=== PATIENT | female | born 1935 | race Caucasian/White ===

== ENCOUNTER 2016-09-14 12:49 | Observation (INO) | payer MEDICARE, OTHER ==
[2016-09-14] VITALS (8 sets, daily range): BP systolic 118–243; BP diastolic 58–107; PULSE 70–90; RESP 16–20; TEMP 97.7–98.7; O2SAT 92–98
[~2016-09-14] VITALS: Ht 160 cm; Wt 69.1 kg
[~2016-09-14 12:49] MED LIST: AMLO5 PO; ASPI325T PO; ATOR80TA41 PO; CLOP75 PO; ENAL5TAB98; METO25 PO; NITR.4 SL; PERC5TAB12 PO
[2016-09-14] MEDS ORDERED: SODIUM CHLOR 0.9% 1000 ML INJ 1,000 ML IV ONE (13:06)
[2016-09-14] MEDS ORDERED: LABETALOL HCL 100 MG/20 ML VIAL IV PUSH ONE (13:15)
--- NOTE | 2016-09-14 13:15 | PD ---
HPI Chief Complaint: Stroke Alert Time Seen by Provider: 13:06 Travel History International Travel<30 days: No Contact w/Intl Traveler<30days: No Traveled to known affect area: No History of Present Illness HPI 81-year-old female with history of previous TIAs, hypertension, presents to the ER today brought in by her daughter because she started having a headache of an 8 out of 10 this morning and started having slurred speech which patient states started around 10:30 to 11 AM. She states that the speech has been improving over the course of the morning. She denies any difficulty walking, numbness or weakness, or any other symptoms. They are concerned because of her previous TIAs. Patient's daughter states that she has had elevated blood pressures recently and has been monitored by her primary care physician regarding that issue. She had taken all for her blood pressure medications this morning and a baby aspirin. 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) Endocrine: No Genitourinary: No Headaches: Yes Hypertension: Yes Musculoskeletal: No Psychiatric: No Respiratory: No Myocardial Infarction: No Radiation Therapy: No Seizures: No Tubal Ligation: Yes Past Surgical History Abdominal Surgery: No AICD: No Body Medical Devices: VERTIGO Cardiac Surgery: No Coronary Artery Bypass Graft: No Ear Surgery: No Endocrine Surgery: No Eye Surgery: Yes (CATERACT REMOVAL 2003) Genitourinary Surgery: No Gynecologic Surgery: Yes (D AND C X 3 TUBAL LIGATION) Oral Surgery: No Pacemaker: No Thoracic Surgery: No Other Surgery: Yes (RIGHT BREAST BENIGN MASS) Social History Alcohol Use: No Tobacco Use: No Substance Use: No Allergies-Medications (Allergen,Severity, Reaction): Coded Allergies: Codeine (Verified Allergy, Severe, 05/10/14) NO REACTION GIVEN Sulfa (Verified Allergy, Unknown, 05/10/14) Lisinopril (Unverified Adverse Reaction, Intermediate, Edema, 05/10/14) Reported Meds & Prescriptions Reported Meds & Active Scripts Active Nitroglycerin Tab 0.4 Mg Sl (Nitroglycerin) 0.4 Mg Subl 0.4 Mg SL DIRECTED PRN 30 Days Aspirin 325 Mg Tab (Aspirin) 325 Mg Tab 325 Mg PO DAILY 30 Days Percocet 5-325 mg (Oxycodone/Acetaminophen) 1 Tab Tab 1 Tab PO Q4H PRN Metoprolol Tartrate 25 mg (Metoprolol Tartrate) 25 Mg Tab 25 Mg PO Q12 30 Days Lipitor 80 Mg Tab (Atorvastatin) 80 Mg Tab 80 Mg PO HS 30 Days Norvasc (Amlodipine Besylate) 5 Mg Tab 5 Mg PO DAILY 30 Days Reported Plavix (Clopidogrel Bisulfate) 75 Mg Tab 75 Mg PO DAILY Vasotec (Enalapril Maleate) 5 Mg Tab 20 DAILY Review of Systems Except as stated in HPI: all other systems reviewed are Neg Physical Exam Narrative GENERAL: Pleasant elderly white female patient currently in no acute distress. She is well-developed, awake, alert, oriented 3. Normal speech. SKIN: Focused skin assessment warm/dry. HEAD: Atraumatic. Normocephalic. EYES: Pupils equal and round. No scleral icterus. No injection or drainage. ENT: No nasal bleeding or discharge. Mucous membranes pink and moist. NECK: Trachea midline. No JVD. CARDIOVASCULAR: Regular rate and rhythm. No murmur appreciated. RESPIRATORY: No accessory muscle use. Clear to auscultation. Breath sounds equal bilaterally. GASTROINTESTINAL: Abdomen soft, non-tender, nondistended. Hepatic and splenic margins not palpable. MUSCULOSKELETAL: No obvious deformities. No clubbing. No cyanosis. No edema. NEUROLOGICAL: Awake and alert. No obvious cranial nerve deficits. Motor grossly within normal limits. Normal speech. No pronator drift. PSYCHIATRIC: Appropriate mood and affect; insight and judgment normal. Data Data Last Documented VS Vital Signs Date Time Temp Pulse Resp B/P Pulse Ox O2 Delivery O2 Flow Rate FiO2 09/14/16 13:47 80 18 187/90 92 Room Air 09/14/16 13:05 Orders Diet Npo (09/14/16 Lunch) Activity Bed Rest (09/14/16 ) Electrocardiogram (09/14/16 ) I-Stat Creatinine (09/14/16 13:06) I-Stat Profile (09/14/16 13:06) Prothrombin Time / Inr (Pt) (09/14/16 13:06) Act Partial Throm Time (Ptt) (09/14/16 13:06) Complete Blood Count With Diff (09/14/16 13:06) Fibrinogen (09/14/16 13:06) Creatine Kinase (Cpk) (09/14/16 13:06) Troponin I (09/14/16 13:06) Ua Includes Microscopic (09/14/16 13:06) Drug Screen, Random Urine (09/14/16 13:06) Type And Screen (09/14/16 13:06) Ct Brain W/O Iv Contrast(Rout) (09/14/16 ) Consult Neurology (09/14/16 ) Blood Glucose (09/14/16 13:06) Ecg Monitoring (09/14/16 13:06) Neuro Checks Q2HX12,Q4H (09/14/16 13:06) Nursing Bedside Swallow Assess .ONCE (09/14/16 13:06) Iv Access Insert/Monitor (09/14/16 13:06) NPO (09/14/16 13:06) Oximetry (09/14/16 13:06) Oxygen Administration (09/14/16 13:06) Sodium Chlor 0.9% 1000 Ml Inj (Ns 1000 M (09/14/16 13:06) Resp Oxygen Juanito C Titrat 1-4 L (09/14/16 13:06) Cath For Specimen (09/14/16 13:06) Labetalol Inj (Trandate Inj) (09/14/16 13:15) Aspirin (Aspirin) (09/14/16 13:45) Mri Brain W/O Contrast (09/14/16 13:43) (Hub Use Only)Inp Phy Cons/Ref (09/14/16 ) Clonidine (Catapres) (09/14/16 14:15) Amlodipine (Norvasc) (09/15/16 09:00) Aspirin (Aspirin) (09/15/16 09:00) Atorvastatin (Lipitor) (09/14/16 21:00) Clopidogrel (Plavix) (09/15/16 09:00) Metoprolol Tartrate (Lopressor) (09/14/16 21:00) Admit Order (Ed Use Only) (09/14/16 15:31) Lorazepam Inj (Ativan Inj) (09/14/16 15:45) Labs Laboratory Tests Test 09/14/16 13:07 White Blood Count 7.6 TH/MM3 Red Blood Count 4.48 MIL/MM3 Hemoglobin 13.4 GM/DL Bedside Hemoglobin 14.3 G/DL Hematocrit 40.6 % Bedside Hematocrit 42.0 % Mean Corpuscular Volume 90.8 FL Mean Corpuscular Hemoglobin 30.0 PG Mean Corpuscular Hemoglobin 33.1 % Concent Red Cell Distribution Width 13.8 % Platelet Count 261 TH/MM3 Mean Platelet Volume 8.4 FL Neutrophils (%) (Auto) 73.6 % Lymphocytes (%) (Auto) 16.1 % Monocytes (%) (Auto) 7.7 % Eosinophils (%) (Auto) 1.9 % Basophils (%) (Auto) 0.7 % Neutrophils # (Auto) 5.6 TH/MM3 Lymphocytes # (Auto) 1.2 TH/MM3 Monocytes # (Auto) 0.6 TH/MM3 Eosinophils # (Auto) 0.1 TH/MM3 Basophils # (Auto) 0.1 TH/MM3 CBC Comment DIFF FINAL Differential Comment Prothrombin Time 10.4 SEC Prothromb Time International 0.9 RATIO Ratio Activated Partial 26.8 SEC Thromboplast Time Fibrinogen 366 mg/dL Bedside Sodium 143 MMOL/L Bedside Potassium 3.9 MMOL/L Bedside Chloride 106 MMOL/L Bedside Blood Urea Nitrogen 18 MG/DL Bedside Creatinine 1.0 MG/DL Bedside Glucose 107 MG/DL Total Creatine Kinase 61 U/L Troponin I LESS THAN 0.02 NG/ML Blood Type A NEGATIVE Antibody Screen NEGATIVE Blood Bank Comment [facility] Medical Decision Making Medical Screen Exam Complete: Yes Emergency Medical Condition: Yes Medical Record Reviewed: Yes Interpretation(s) EKG shows normal sinus rhythm at a rate of 76 bpm with a left bundle branch block pattern. Differential Diagnosis Slurred speech is/headachestroke versus acute intracranial bleed versus hypertensive urgency Narrative Course Patient's blood pressure is fairly elevated in the ER. Stroke alert was called for further evaluation of possible stroke. Her symptoms have rapidly improved in the ER however, and she has barely a word finding difficulty currently. Case was discussed with Dr. Gonzalez of neurology who states that he does not think the patient would be a TPA candidate due to rapidly improving symptoms and very low stroke score. NIH score of less than 1. Case is discussed with Dr. Ingram for admission. Aspirin was given in the ER. She was also given labetalol and clonidine and for fairly elevated blood pressures. Dr. Gonzalez has also requested I do an MRI for further evaluation. Diagnosis Primary Impression: Stroke Admitting Information Admitting Physician Requests: it Gabriela Dimas MD Sep 14, 2016 13:15
--- NOTE | 2016-09-14 13:21 | RADRPT ---
EXAM DATE/TIME: 09/14/2016 13:01 [facility] COMPARISON: CT BRAIN W/O CONTRAST, September 20, 2013, 0:34. INDICATIONS : Stroke alert; slurred speech, headache. RADIATION DOSE: 56.35 CTDIvol (mGy) This report was called by Dr. Sebastian to Dr. Dimas at 1: 18 PM. MEDICAL HISTORY : Stroke. Hypertension. SURGICAL HISTORY : None. ENCOUNTER: Initial ACUITY: 1 day PAIN SCALE: 3/10 LOCATION: Bilateral cranial TECHNIQUE: Multiple contiguous axial images were obtained of the head. Using automated exposure control and adj ustment of the mA and/or kV according to patient size, radiation dose was kept as low as reasonably a chievable to obtain optimal diagnostic quality images. FINDINGS: CEREBRUM: There is mild cerebral atrophy. Ventricles are mildly prominent but stable. There is mild periventric ular white matter low-attenuation. No evidence of midline shift, mass lesion, hemorrhage or acute in farction. No extra-axial fluid collections are seen. POSTERIOR FOSSA: The cerebellum and brainstem demonstrate no acute finding. The 4th ventricle is midline. The cerebe llopontine angle is unremarkable. EXTRACRANIAL: The visualized portion of the orbits is intact. SKULL: The calvaria is intact. No evidence of skull fracture. CONCLUSION: 1. No acute intracranial abnormality is identified. 2. Chronic changes include generalized atrophy and periventricular white matter low attenuation primo cteristic of chronic microvascular ischemia. Giovanni Sebastian MD on September 14, 2016 at 13:16 Board Certified Radiologist. This report was verified electronically.
[2016-09-14 13:24] LABS: I-STAT POTASSIUM 3.9 MMOL/L (3.5-4.9); I-STAT SODIUM 143 MMOL/L (138-146)
[2016-09-14 13:25] LABS: AUTOMATED NEUTROPHIL # 5.6 TH/MM3 (1.8-7.7); BASOPHIL # 0.1 TH/MM3 (0-0.2); BASOPHIL % 0.7 % (0.0-2.0); EOSINOPHIL # 0.1 TH/MM3 (0-0.4); EOSINOPHIL % 1.9 % (0.0-4.0); HEMATOCRIT 40.6 % (35.0-46.0); HEMO FLAGS DIFF FINAL; LYMPH % 16.1 % (9.0-44.0); LYMPHOCYTE # 1.2 TH/MM3 (1.0-4.8); MEAN CELL VOLUME 90.8 FL (80.0-100.0); MEAN CORPUSCULAR HGB CONC 33.1 % (32.0-36.0); MONO % 7.7 % (0.0-8.0); NEUT % 73.6 % (16.0-70.0); PLATELET COUNT 261 TH/MM3 (150-450); RED BLOOD COUNT 4.48 MIL/MM3 (4.00-5.30); RED CELL DISTRIBUTION WIDTH 13.8 % (11.6-17.2); WHITE BLOOD COUNT 7.6 TH/MM3 (4.0-11.0)
[2016-09-14 13:34] LABS: APTT (PATIENT) 26.8 SEC (24.3-30.1); INTERNATIONAL NORMALIZED RATIO 0.9 RATIO; PROTHROMBIN TIME - PATIENT 10.4 SEC (9.8-11.6)
[2016-09-14] MEDS ORDERED: ASPIRIN 325 MG TAB PO ONE (13:45)
[2016-09-14 13:49] LABS: CREATINE KINASE 61 U/L (26-192)
[2016-09-14] MEDS ORDERED: cloNIDine HCL 0.2 MG TAB PO ONE (14:15)
[2016-09-14] MEDS: SODIUM CHLOR 0.9% 1000 ML INJ 1,000 ML IV SCH (15:37)
[2016-09-14] MEDS ORDERED: ACETAMINOPHEN 325 MG TAB PO PRN (15:45)
[2016-09-14] MEDS ORDERED: NALOXONE HCL 0.4 MG/ML AMP IV PRN (15:45)
[2016-09-14] MEDS ORDERED: ONDANSETRON HCL 4 MG/2 ML VIAL IVP PRN (15:45)
[2016-09-14] MEDS ORDERED: SODIUM CHLORIDE 0.9% FLUSH 10 ML FLUSH IV FLUSH PRN (15:45)
[2016-09-14] MEDS ORDERED: LORazepam 2 MG/ML VIAL IV PUSH ONE (15:45)
[2016-09-14] MEDS ORDERED: BISACODYL 10 MG SUPP RECTAL PRN (15:45)
--- NOTE | 2016-09-14 16:34 | RADRPT ---
EXAM DATE/TIME: 09/14/2016 15:57 [facility] COMPARISON: CT BRAIN W/O CONTRAST, September 14, 2016, 13:01. INDICATIONS : Aphasia. CVA. MEDICAL HISTORY : Hypertension. Cerebrovascular disease. SURGICAL HISTORY : Breast biopsy. Cataracts. ENCOUNTER: Subsequent ACUITY: 1 day PAIN SCORE: 3/10 LOCATION: head. TECHNIQUE: Multiplanar, multisequence MRI of the brain was performed without contrast. FINDINGS: CEREBRUM: There is generalized atrophy. Ventricles are normal in size given the degree of atrophy present. Ther e are normal flow-voids within the major intracranial vessels on the T2 sequence. No evidence of mid line shift, mass lesion, hemorrhage or acute infarction. No extraaxial fluid collections are seen. The pituitary gland and suprasellar cistern are normal in configuration. WHITE MATTER: There is mild to moderate periventricular white matter signal change. POSTERIOR FOSSA: The cerebellum and brainstem demonstrate no acute finding. The 4th ventricle is midline. The cerebel lopontine angle is unremarkable. The cerebellar tonsils are normal in position. DIFFUSION IMAGING: No focal areas of restricted diffusion are seen. No evidence of acute infarction. EXTRACRANIAL: The visualized portions of the orbits and paranasal sinuses are unremarkable. CONCLUSION: 1. No acute intracranial abnormality is identified. There are no findings to indicate recent ischemia . 2. Chronic changes include generalized atrophy and moderate severity periventricular white matter sig nal change characteristic of chronic microvascular ischemia. Giovanni Sebastian MD on September 14, 2016 at 16:30 Board Certified Radiologist. This report was verified electronically.
--- NOTE | 2016-09-14 16:53 | OTSOAPIP ---
ATTEMPTED AT 1630 PM. PATIENT'S DAUGHTER IN ROOM REPORTS BASELINE LIVES ALONE, ADL AND FUNCTIONAL MOBILITY INDEPENDENT. PATIENT RECEIVED ATIVAN DUE TO ELEVATED BLOOD PRESSURE AND IS SLEEPING SOUNDLY. DAUGHTER REPORTS NO PHYSICAL DEFICITS. WILL RECHECK IN AM. Therapist: Jossy Wray OTR/L Signature on file
[2016-09-14] MEDS ORDERED: ENOXAPARIN SODIUM 40 MG/0.4 ML SYRINGE SQ SCH (17:00)
--- NOTE | 2016-09-14 17:02 | HHI.HP ---
[facility] Service [facility] Primary Care Physician Apple Thomas MD Admission Diagnosis stroke alert/CVA Diagnoses: Chief Complaint: Slurred speech Travel History International Travel<30 Days: No Contact w/Intl Traveler <30 Da: No Traveled to Known Affected Are: No History of Present Illness This is a pleasant 81 y/o female with previous TIAs as per her Daughter Multiple TIAs in the past one week ago had the last one, has Hypertension, she came to ER today brought in by her Daughter because of headache, 8/10 in intensity on both eyes, she is been diagnosed recently with Ocular Migraine, this started this morning around 10:30 AM she called her Daughter with slurred speech, denied any difficulty walking, numbness or weakness, or any other symptoms. her Daughter concerned about TIA, versus CVA brought her also her blood pressure uncontrolled, she had Stroke alert but not considered for tPA by Neurology specialist. Past Family Social History Past Medical History CAD status post Heart Catheterization, Hyperlipidemia Hypertension TIA 2002, 2004 and last week Bilateral Hearing aids Migraine headaches. Past Surgical History Tubal Ligation Cataract Surgery 2003 D and C x 3 Right Breast benign Mass Reported Medications Reported Meds & Active Scripts Active Nitroglycerin Tab 0.4 Mg Sl (Nitroglycerin) 0.4 Mg Subl 0.4 Mg SL DIRECTED PRN 30 Days Aspirin 325 Mg Tab (Aspirin) 325 Mg Tab 325 Mg PO DAILY 30 Days Percocet 5-325 mg (Oxycodone/Acetaminophen) 1 Tab Tab 1 Tab PO Q4H PRN Metoprolol Tartrate 25 mg (Metoprolol Tartrate) 25 Mg Tab 25 Mg PO Q12 30 Days Lipitor 80 Mg Tab (Atorvastatin) 80 Mg Tab 80 Mg PO HS 30 Days Norvasc (Amlodipine Besylate) 5 Mg Tab 5 Mg PO DAILY 30 Days Reported Plavix (Clopidogrel Bisulfate) 75 Mg Tab 75 Mg PO DAILY Vasotec (Enalapril Maleate) 5 Mg Tab 20 DAILY Allergies: Coded Allergies: Codeine (Verified Allergy, Severe, 05/10/14) NO REACTION GIVEN Sulfa (Verified Allergy, Unknown, 05/10/14) Lisinopril (Unverified Adverse Reaction, Intermediate, Edema, 05/10/14) Active Ordered Medications Current Medications Medications (Trade) Dose Ordered Sig/Thomas Route Start Time Stop Time Status Last Admin (NS 1000 ml Inj) 1,000 ml @ 70 mls/hr [id number] ONCE IV 09/14/16 13:06 09/15/16 03:23 09/14/16 13:54 (Norvasc) 5 mg DAILY PO 09/15/16 09:00 (Aspirin) 325 mg DAILY PO 09/15/16 09:00 (Lipitor) 80 mg HS PO 09/14/16 21:00 (Plavix) 75 mg DAILY PO 09/15/16 09:00 Metoprolol Tartrate 25 mg 25 mg BID PO 09/14/16 21:00 (NS 1000 ml Inj) 1,000 ml @ 100 mls/hr Q10H IV 09/14/16 15:37 (NS Flush) 2 ml UNSCH PRN IV FLUSH 09/14/16 15:45 (NS Flush) 2 ml BID IV FLUSH 09/14/16 21:00 (Tylenol) 650 mg Q4H PRN PO 09/14/16 15:45 (Zofran Inj) 4 mg Q6H PRN IVP 09/14/16 15:45 (Dulcolax Supp) 10 mg DAILY PRN RECTAL 09/14/16 15:45 (Colace) 100 mg Q12H PO 09/14/16 16:00 (Lovenox Inj) 40 mg Q24H SQ 09/14/16 17:00 (Narcan Inj) 0.4 mg UNSCH PRN IV 09/14/16 15:45 Family History Father with Stroke and Sister with status post Stroke, Social History Lives by her self and drinks alcohol occasional. Physical Exam Vital Signs Vital Signs Date Time Temp Pulse Resp B/P Pulse Ox O2 Delivery O2 Flow Rate FiO2 09/14/16 13:47 80 18 187/90 92 Room Air 09/14/16 13:30 83 93 Room Air 09/14/16 13:05 20 94 Room Air 09/14/16 13:05 94 Room Air 09/14/16 12:55 98.3 76 20 243/107 94 09/14/16 12:51 72 18 220/100 96 Room Air Physical Exam GENERAL: Pleasant elderly white female patient currently in no acute distress. She is well-developed, awake, alert, oriented 3. Normal speech. SKIN: Focused skin assessment warm/dry. HEAD: Atraumatic. Normocephalic. EYES: Pupils equal and round. No scleral icterus. No injection or drainage. ENT: No nasal bleeding or discharge. Mucous membranes pink and moist. NECK: Trachea midline. No JVD. CARDIOVASCULAR: Regular rate and rhythm. No murmur appreciated. RESPIRATORY: No accessory muscle use. Clear to auscultation. Breath sounds equal bilaterally. GASTROINTESTINAL: Abdomen soft, non-tender, nondistended. Hepatic and splenic margins not palpable. MUSCULOSKELETAL: No obvious deformities. No clubbing. No cyanosis. No edema. NEUROLOGICAL: Awake and alert. No obvious cranial nerve deficits. Motor grossly within normal limits. Normal speech. No pronator drift. PSYCHIATRIC: Appropriate mood and affect; insight and judgment normal. Laboratory Laboratory Tests Test 09/14/16 13:07 White Blood Count 7.6 Red Blood Count 4.48 Hemoglobin 13.4 Bedside Hemoglobin 14.3 Hematocrit 40.6 Bedside Hematocrit 42.0 Mean Corpuscular Volume 90.8 Mean Corpuscular Hemoglobin 30.0 Mean Corpuscular Hemoglobin 33.1 Concent Red Cell Distribution Width 13.8 Platelet Count 261 Mean Platelet Volume 8.4 Neutrophils (%) (Auto) 73.6 Lymphocytes (%) (Auto) 16.1 Monocytes (%) (Auto) 7.7 Eosinophils (%) (Auto) 1.9 Basophils (%) (Auto) 0.7 Neutrophils # (Auto) 5.6 Lymphocytes # (Auto) 1.2 Monocytes # (Auto) 0.6 Eosinophils # (Auto) 0.1 Basophils # (Auto) 0.1 CBC Comment DIFF FINAL Differential Comment Prothrombin Time 10.4 Prothromb Time International 0.9 Ratio Activated Partial 26.8 Thromboplast Time Fibrinogen 366 Bedside Sodium 143 Bedside Potassium 3.9 Bedside Chloride 106 Bedside Blood Urea Nitrogen 18 Bedside Creatinine 1.0 Bedside Glucose 107 Total Creatine Kinase 61 Troponin I LESS THAN 0.02 Blood Type A NEGATIVE Antibody Screen NEGATIVE Blood Bank Comment Result Diagram: 09/14/16 1307 Imaging Last Impressions Brain MRI 09/14/16 1343 Signed Impressions: Service Date/Time: Wednesday, September 14, 2016 15:57 - CONCLUSION: 1. No acute intracranial abnormality is identified. There are no findings to indicate recent ischemia. 2. Chronic changes include generalized atrophy and moderate severity periventricular white matter signal change characteristic of chronic microvascular ischemia. Giovanni Sebastian MD Head CT 09/14/16 0000 Signed Impressions: Service Date/Time: Wednesday, September 14, 2016 13:01 - CONCLUSION: 1. No acute intracranial abnormality is identified. 2. Chronic changes include generalized atrophy and periventricular white matter low attenuation characteristic of chronic microvascular ischemia. Giovanni Sebastian MD Assessment and Plan Assessment and Plan 1. TIA versus CVA not found any pathology on CT Brain or Brain MRI no contrast , her EKG showed sinus rhythm with Left bundle branch block Stroke alert and seen by Neurology specialist no need for tPA, recommended for admission continued Home medicines, Plavix, Beta luis fernando Statin, PT, OT and Speech therapy consult, Event Security Officer, NPO by now and follow recommendations, Neurology specialist following 2. Hypertension Permissive Hypertension recommended at this time, but improving 3. Hyperlipidemia continue Statins. 4. Migraine headache continue Pain medicines and Beta blockers 5. CAD status post Cardiac Cath, history of VT 6. Anxiety disorder as per her Daughter the patient has been under stressful condition in life, will add some Ativan as needed. DVT prophylaxis with Lovenox. Discussed with Patient in the room her Daughter Mrs. Beatriz Jackson and with ER specialist Doctor Gabriela perez. Code Status Full Code Discussed Condition With Patient, Daughter and ER specialist. Physician Certification 2 Midnight Certification Type: Admission for Inpatient Services Order for Inpatient Services The services are ordered in accordance with Medicare regulations or non- Medicare payer requirements, as applicable. In the case of services not specified as inpatient-only, they are appropriately provided as inpatient services in accordance with the 2-midnight benchmark. Estimated LOS (days): 1 days is the estimated time the patient will need to remain in the hospital, assuming treatment plan goals are met and no additional complications. Post-Hospital Plan: Home Don Rick MD Sep 14, 2016 17:02
--- NOTE | 2016-09-14 17:05 | RADRPT ---
EXAM DATE/TIME: 09/14/2016 15:57 [facility] COMPARISON: MRI BRAIN W/O CONTRAST, September 14, 2016, 15:57. US CAROTID ARTERIES, April 04, 2013, 9:40. INDICATIONS : Stroke. CONTRAST: 20 cc Omniscan (gadodiamide) IV MEDICAL HISTORY : Hypertension. Cerebrovascular disease. SURGICAL HISTORY : Breast biopsy. ENCOUNTER: Subsequent ACUITY: 1 day PAIN SCORE: 0/10 LOCATION: neck Percent stenosis is calculated using the diameter of the stenotic region over the diameter of the nor mal distal internal carotid artery. TECHNIQUE: Bolus infused MRA of the extracranial circulation was performed using a neurovascular coil. Post pro cessing was performed including rotating subvolume maximum intensity projections of each carotid yordy ry, rotating full volume maximum intensity projections of both carotid arteries, sagittal and coronal sliding thin slab reformations of each carotid artery, and left oblique sliding thin slab reformatio n through the aortic arch to include the origin of the arch branch vessels. FINDINGS: AORTIC ARCH: There is a three vessel origin of the great vessels from the aorta. No evidence of ostial narrowing. RIGHT CAROTID: The common carotid artery is intact. The carotid bulb has a normal configuration without ulceration or narrowing. The internal carotid artery lumen is smooth without stenosis. The external carotid th ere is a focal severe stenosis at the origin of the right external carotid artery.. LEFT CAROTID: The common carotid artery is intact. There is mild atherosclerosis suspected at the carotid bifurcati on without evidence of hemodynamically significant stenosis. The internal carotid artery lumen is smo oth without stenosis. The external carotid artery is intact. VERTEBRALS: The vertebral arteries have a symmetric diameter. No stenotic lesions are seen. CONCLUSION: 1. Focal severe stenosis of the right proximal external carotid artery suspected at the bifurcation. 2. No evidence for hemodynamically significant stenosis of either internal carotid artery. 3. Vertebral arteries are widely patent. Eliecer Obregon MD on September 14, 2016 at 17:01 Board Certified Radiologist. This report was verified electronically.
[2016-09-14 17:37] LABS: CREATINE KINASE 51 U/L (26-192)
[2016-09-14] MEDS: DOCUSATE SODIUM 100 MG CAP PO SCH ×2 (18:18→21:41)
[2016-09-14] MEDS ORDERED: GADODIAMIDE PF 287 MG/ML 20 ML VIAL (for RAD MRI) IV ONE (18:29)
[2016-09-14] MEDS ORDERED: ATORVASTATIN 80 MG TAB PO SCH (21:00)
[2016-09-14] MEDS ORDERED: SODIUM CHLORIDE 0.9% FLUSH 10 ML FLUSH IV FLUSH SCH (21:00)
[2016-09-14] MEDS: METOPROLOL TARTRATE 25 MG TAB PO SCH (21:00)
--- NOTE | 2016-09-14 21:02 | EC ---
Study Study Date:09/14/2016 STUDY CONCLUSIONS SUMMARY LEFT VENTRICLE: The cavity size was normal. Wall thickness was increased in a pattern of moderate LVH. There was concentric hypertrophy. Systolic function was normal. The estimated ejection fraction was in the range of 60% to 65%. Wall motion was normal; there were no regional wall motion abnormalities. Doppler parameters are consistent with abnormal left ventricular relaxation (grade 1 diastolic dysfunction). If LV function is below 40, please consider prescribing an ACEI or ARB or document rationale for non-use. PROCEDURE DATA STUDY STATUS: Elective. Procedure: Transthoracic echocardiography. Image quality was good. Scanning was performed from the parasternal, apical, and subcostal acoustic windows. Study completion: The patient tolerated the procedure well. Transthoracic echocardiography. M-mode, complete 2D, complete spectral Doppler, and color Doppler. Height: Height: 63in. Weight: Weight: 150.7lb. Body mass index: BMI: 26.7kg/m^2. Body surface area: BSA: 1.72m^2. Patient status: Inpatient. CARDIAC ANATOMY LEFT VENTRICLE: The cavity size was normal. Wall thickness was increased in a pattern of moderate LVH. There was concentric hypertrophy. Systolic function was normal. The estimated ejection fraction was in the range of 60% to 65%. Wall motion was normal; there were no regional wall motion abnormalities. Doppler parameters are consistent with abnormal left ventricular relaxation (grade 1 diastolic dysfunction). AORTIC VALVE: Trileaflet; mildly thickened leaflets. Doppler: There was no stenosis. No significant regurgitation. Valve area: 1.73cm^2 (Vmax). Indexed valve area: 1.01cm^2/m^2 (Vmax). MITRAL VALVE: The valve appears to be grossly normal. Doppler: There was no evidence for stenosis. No significant regurgitation. Valve area by pressure half-time: 4.07cm^2. Indexed valve area by pressure half-time: 2.37cm^2/m^2. RIGHT VENTRICLE: The cavity size was normal. PULMONIC VALVE: Not well visualized. Doppler: There was no evidence for stenosis. No significant regurgitation. TRICUSPID VALVE: The valve appears to be grossly normal. Doppler: There was no evidence for stenosis. No significant regurgitation. PERICARDIUM: There was no pericardial effusion. Patient weight: 150.7lb _Ejection fraction:_ 65-75% _Fractional shortening:_ 32% up to 5Kg 5-11.5Kg 11.6-22.9Kg 23-45Kg 45-57Kg Aortic Root 7-13 <17 13-22 17-27 17-27 LA diam 6-13 <23 24-38 33-47 37-40 RVID 10-17 7-15 7-15 7-18 8-17 LVIDd 12-22 <32 24-38 33-47 37-40 LVPW 2-4 3-6 5-7 6-8 7-8 IVS 2-4 3-6 5-7 6-8 7-8 BASIC MEASUREMENTS ADULT NORMAL Left ventricle LV internal dimension, ED, chordal *35.2 mm 43-52 level, PLAX LV internal dimension, ES, chordal 23.6 mm 23-38 level, PLAX Fractional shortening, chordal level, 33 % >29 PLAX LV posterior wall thickness, ED 16.7 mm IVS/LVPW ratio, ED 1 <1.3 Volume, ED, MOD, 1-plane 60 ml Volume, ES, MOD, 1-plane 19 ml Ejection fraction, MOD, 1-plane 68 % Stroke volume, MOD, 1-plane 41 ml Volume index, ED, MOD, 1-plane 35 ml/m^2 Volume index, ES, MOD, 1-plane 11 ml/m^2 Stroke index, MOD, 1-plane 23.8 ml/m^2 Ventricular septum Septal thickness, ED 16.7 mm Aortic valve Leaflet separation 18 mm 15-26 Left atrium Anterior-posterior dimension 36 mm Anterior-posterior dimension index 2.09 cm/m^2 <2.2 Right ventricle RV internal dimension, ED, PLAX 19.2 mm 19-38 BASIC MEASUREMENTS ADULT NORMAL Aortic valve Leaflet separation 18 mm 15-26 Aorta Root diameter, ED 27 mm 20-37 DOPPLER MEASUREMENTS ADULT NORMAL Aortic valve Peak velocity, S 148 cm/s Valve area, Vmax 1.73 cm^2 Valve area index, Vmax 1.01 cm^2/m^2 Mitral valve Peak E-wave velocity 52.8 cm/s Peak A-wave velocity 83.9 cm/s Pressure half-time 54 ms Peak E/A ratio 0.6 Valve area, pressure half-time 4.07 cm^2 Valve area index, pressure half-time 2.37 cm^2/m^2 Pulmonic valve Peak velocity, S 117 cm/s LEGEND: Mean values are shown as u=mean value. Asterisk (*) rey values outside specified normal range. Prepared and signed by Isauro Brown [id number]
[2016-09-15 00:32] VITALS: BP 141/60; PULSE 64; RESP 20; TEMP 96.1; O2SAT 64
[2016-09-15] MEDS: SODIUM CHLOR 0.9% 1000 ML INJ 1,000 ML IV SCH (01:37)
[2016-09-15 02:00] VITALS: BP 156/70; PULSE 70; RESP 2; TEMP 96.6; O2SAT 95
[2016-09-15 04:15] VITALS: BP 156/70; PULSE 67; RESP 20; TEMP 96.6; O2SAT 95
--- NOTE | 2016-09-15 06:50 | MB ---
cc: CARLOS MANUEL DELGADO MD DATE OF CONSULTATION 09/14/2016 REASON FOR CONSULTATION Stroke alert HISTORY OF PRESENT ILLNESS This is an 81-year-old female with past medical history of several TIAs. Describes these episodes as slurred speech without any weakness or numbness or facial droop, history of hypertension who presented to the [facility] emergency room today by her daughter because of severe headache and blurry vision, painful eyes diagnosed recently with ocular migraines. She called her daughter who noted that she had slurred speech. Denied any facial droop, difficulty walking weakness or numbness or her extremities, loss of sphincter control, convulsions or disorientation. Daughter brought her mother because of concern of possible stroke. A stroke alert was called. The head CT scan did not reveal any intracranial abnormality. EKG with normal sinus rhythm. Blood pressure initial reading was elevated greater than 180 systolic. The patient symptoms rapidly improved. The patient was deemed not to be a t-PA candidate due to the rapidly improving symptoms and NIH stroke scale of 0. REVIEW OF SYSTEMS A 12-point review of systems negative except for what is stated in the HPI. PAST MEDICAL HISTORY 1. Coronary artery disease status post cardiac catheterization. 2. Hypertension 3. Hyperlipidemia 4. TIA in 2007, 2009 and last week 5. Bilateral hearing aids 6. Ocular migraines PAST SURGICAL HISTORY 1. Tubal ligation 2. Cataract surgery 2003 3. D&C three times 4. Right breast mass removal. MEDICATIONS 1. Nitroglycerin 2. Aspirin 3. Percocet 4. Metoprolol 5. Lipitor 6. Norvasc 7. Plavix 8. Vasotec - The patient is not aware why she is on both Plavix and Aspirin ALLERGIES CODEINE, SULFA AND LISINOPRIL FAMILY HISTORY Father and sister with history of stroke. SOCIAL HISTORY Lives by herself. Drinks alcohol occasionally. Denies tobacco or illicit drug abuse. PHYSICAL EXAMINATION GENERAL: Awake, alert, pleasant, good historian not in apparent distress HEENT: Atraumatic, normocephalic. Intact hearing and intact vision. NECK: Trachea in the midline. No carotid bruit. No signs of meningeal irritation. CARDIOVASCULAR: Regular rate and rhythm. No murmurs appreciated. RESPIRATORY: Clear to auscultation. No wheezes. GASTROINTESTINAL: Soft, nontender. MUSCULOSKELETAL: No obvious deformity, clubbing or cyanosis. Moves all extremities equally. NEUROLOGIC: Awake, alert and oriented to time, person and place. No speech difficulty. No dysarthria. No dysphasia. Intact speech content. Cranial nerves II-XII are grossly intact. Motor and sensory examination 5/5 bilateral symmetrical upper and lower extremities normal tone. No abnormal movement. Sensation intact bilateral and symmetrical. Reflexes 2+ bilateral and symmetrical upper and lower extremities with planters bilaterally downgoing. [id number], [id number] is intact bilateral and symmetrical. PSYCHOLOGICAL: Good mood and behavior. No hallucinations. Insight and judgment are normal. LABORATORY DATA White blood cell count 7.6, hemoglobin 13.4, MCV 90.8 platelets. 261. Sodium 143, potassium 3.9, BUN 50, creatinine 1.01. DIAGNOSTIC IMAGING - Head CT scan with no reported acute intracranial abnormality. Chronic changes include generalized atrophy in periventricular white matter. Low attenuation characteristic of chronic microvascular ischemia. - Brain MRI: No acute intracranial abnormality identified. No findings to indicate a recent ischemia. Chronic changes include generalized atrophy and multiple periventricular white matter signal change characteristic of chronic microvascular ischemia. - Neck MRA focal severe stenosis of the right proximal external carotid artery suspected at the bifurcation. No evidence of hemodynamically significant stenosis of either internal carotid artery. Vertebral arteries are widely patent. DIAGNOSTIC IMPRESSION 1. TIA 2. Hypertensive urgency 3. Hyperlipidemia 4. History of diagnosis for ocular migraine. 5. Coronary artery disease 6. Anxiety PLAN 1. Neuro checks q. four hourly. 2. Continue aspirin 325 and Plavix 75 at this time. 3. The patient is stable from a neurology standpoint, neurologic examination is nonfocal. 4. Neuro imaging diagnostics tests are unremarkable. 5. May consider Holter monitoring for possible paroxysmal atrial fibrillation given the multiple TIAs. 6. Follow up with outpatient neurology in four weeks. Thank you for the opportunity to participate in the care of your patient. MD KARIN Price/ABIOLA /11:51 PM /6:31 AM JANINA
[2016-09-15 07:20] VITALS: BP 173/70; PULSE 71; RESP 18; TEMP 97.2; O2SAT 94
[2016-09-15 07:33] LABS: AUTOMATED NEUTROPHIL # 4.2 TH/MM3 (1.8-7.7); BASOPHIL % 0.8 % (0.0-2.0); EOSINOPHIL # 0.1 TH/MM3 (0-0.4); EOSINOPHIL % 1.9 % (0.0-4.0); HEMATOCRIT 37.6 % (35.0-46.0); HEMO FLAGS DIFF FINAL; LYMPH % 22.1 % (9.0-44.0); LYMPHOCYTE # 1.4 TH/MM3 (1.0-4.8); MEAN CORPUSCULAR HEMOGLOBIN 29.7 PG (27.0-34.0); MONO % 6.2 % (0.0-8.0); PLATELET COUNT 202 TH/MM3 (150-450); RED BLOOD COUNT 4.18 MIL/MM3 (4.00-5.30); RED CELL DISTRIBUTION WIDTH 13.9 % (11.6-17.2); WHITE BLOOD COUNT 6.1 TH/MM3 (4.0-11.0)
[2016-09-15 07:38] LABS: PROTHROMBIN TIME - PATIENT 10.7 SEC (9.8-11.6)
[2016-09-15 07:54] LABS: BICARBONATE 24.8 MEQ/L (21.0-32.0); INDIRECT BILIRUBIN 0.4 MG/DL (0.0-0.8); POTASSIUM 3.8 MEQ/L (3.5-5.1); TOTAL BILIRUBIN ADULT 0.5 MG/DL (0.2-1.0)
--- NOTE | 2016-09-15 08:50 | HHI.PR ---
Subjective Remarks This is a pleasant 81 y/o female with previous TIAs as per her Daughter Multiple TIAs in the past one week ago had the last one, has Hypertension, she came to ER today brought in by her Daughter because of headache, 8/10 in intensity on both eyes, she is been diagnosed recently with Ocular Migraine, this started this morning around 10:30 AM she called her Daughter with slurred speech, denied any difficulty walking, numbness or weakness, or any other symptoms. her Daughter concerned about TIA, versus CVA brought her also her blood pressure uncontrolled, she had Stroke alert but not considered for tPA by Neurology specialist. 09/15: Status post Neurology specialist consult with Diagnosis of TIA, Accelerated Hypertension, Ocular Migraine, recommended to continue Aspirin 325 mg and Plavix 75 mg, stable from Neurology for discharge. Holter monitoring for possible PAF given multiple TIA follow by Neurology in four weeks. appreciated assistance by Neurology specialist Doctor Mary Rutherford Objective Vital Signs Date Time Temp Pulse Resp B/P Pulse Ox O2 Delivery O2 Flow Rate FiO2 09/15/16 04:15 96.6 67 20 156/70 95 09/15/16 00:32 96.1 64 20 141/60 64 09/14/16 20:00 97.7 72 20 136/59 98 09/14/16 20:00 70 09/14/16 18:30 74 18 141/63 97 Nasal Cannula 2 09/14/16 18:03 98.7 78 16 118/58 92 Nasal Cannula 2 09/14/16 16:44 79 16 147/65 95 Nasal Cannula 2 09/14/16 13:47 80 18 187/90 92 Room Air 09/14/16 13:30 83 93 Room Air 09/14/16 13:05 20 94 Room Air 09/14/16 13:05 94 Room Air 09/14/16 12:55 98.3 76 20 243/107 94 09/14/16 12:51 72 18 220/100 96 Room Air I/O 09/14/16 09/14/16 09/14/16 09/15/16 09/15/16 09/15/16 07:00 15:00 23:00 07:00 15:00 23:00 Intake Total 270 ml Balance 270 ml Intake IV Total 270 ml # Voids 1 1 # Bowel Movements 0 0 Result Diagram: [id number]/[id number] Imaging Last Impressions Brain MRI 09/14/16 1343 Signed Impressions: Service Date/Time: Wednesday, September 14, 2016 15:57 - CONCLUSION: 1. No acute intracranial abnormality is identified. There are no findings to indicate recent ischemia. 2. Chronic changes include generalized atrophy and moderate severity periventricular white matter signal change characteristic of chronic microvascular ischemia. Giovanni Sebastian MD Neck Magnetic Resonance Angiography 09/14/16 0000 Signed Impressions: Service Date/Time: Wednesday, September 14, 2016 15:57 - CONCLUSION: 1. Focal severe stenosis of the right proximal external carotid artery suspected at the bifurcation. 2. No evidence for hemodynamically significant stenosis of either internal carotid artery. 3. Vertebral arteries are widely patent. Eliecer Obregon MD Head CT 09/14/16 0000 Signed Impressions: Service Date/Time: Wednesday, September 14, 2016 13:01 - CONCLUSION: 1. No acute intracranial abnormality is identified. 2. Chronic changes include generalized atrophy and periventricular white matter low attenuation characteristic of chronic microvascular ischemia. Giovanni Sebastian MD Procedures No Procedures performed. Other Results Laboratory Tests Test 09/14/16 09/14/16 09/15/16 13:07 23:07 07:19 Bedside Hemoglobin 14.3 G/DL Bedside Hematocrit 42.0 % Activated Partial 26.8 SEC Thromboplast Time Fibrinogen 366 mg/dL Bedside Sodium 143 MMOL/L Bedside Potassium 3.9 MMOL/L Bedside Chloride 106 MMOL/L Bedside Blood Urea Nitrogen 18 MG/DL Bedside Creatinine 1.0 MG/DL Bedside Glucose 107 MG/DL Blood Type A NEGATIVE Antibody Screen NEGATIVE Blood Bank Comment Total Creatine Kinase 48 U/L Troponin I 0.02 NG/ML White Blood Count 6.1 TH/MM3 Red Blood Count 4.18 MIL/MM3 Hemoglobin 12.4 GM/DL Hematocrit 37.6 % Mean Corpuscular Volume 90.0 FL Mean Corpuscular Hemoglobin 29.7 PG Mean Corpuscular Hemoglobin 33.0 % Concent Red Cell Distribution Width 13.9 % Platelet Count 202 TH/MM3 Mean Platelet Volume 8.2 FL Neutrophils (%) (Auto) 69.0 % Lymphocytes (%) (Auto) 22.1 % Monocytes (%) (Auto) 6.2 % Eosinophils (%) (Auto) 1.9 % Basophils (%) (Auto) 0.8 % Neutrophils # (Auto) 4.2 TH/MM3 Lymphocytes # (Auto) 1.4 TH/MM3 Monocytes # (Auto) 0.4 TH/MM3 Eosinophils # (Auto) 0.1 TH/MM3 Basophils # (Auto) 0.0 TH/MM3 CBC Comment DIFF FINAL Differential Comment Prothrombin Time 10.7 SEC Prothromb Time International 1.0 RATIO Ratio Sodium Level 145 MEQ/L Potassium Level 3.8 MEQ/L Chloride Level 112 MEQ/L Carbon Dioxide Level 24.8 MEQ/L Anion Gap 8 MEQ/L Blood Urea Nitrogen 11 MG/DL Creatinine 0.78 MG/DL Estimat Glomerular Filtration 71 ML/MIN Rate Random Glucose 99 MG/DL Calcium Level 8.2 MG/DL Total Bilirubin 0.5 MG/DL Direct Bilirubin 0.1 MG/DL Indirect Bilirubin 0.4 MG/DL Aspartate Amino Transf 21 U/L (AST/SGOT) Alanine Aminotransferase 23 U/L (ALT/SGPT) Alkaline Phosphatase 109 U/L Total Protein 6.1 GM/DL Albumin 2.9 GM/DL Objective Remarks GENERAL: Pleasant elderly white female patient currently in no acute distress. She is well-developed, awake, alert, oriented 3. Normal speech. SKIN: Focused skin assessment warm/dry. HEAD: Atraumatic. Normocephalic. EYES: Pupils equal and round. No scleral icterus. No injection or drainage. ENT: No nasal bleeding or discharge. Mucous membranes pink and moist. NECK: Trachea midline. No JVD. CARDIOVASCULAR: Regular rate and rhythm. No murmur appreciated. RESPIRATORY: No accessory muscle use. Clear to auscultation. Breath sounds equal bilaterally. GASTROINTESTINAL: Abdomen soft, non-tender, nondistended. Hepatic and splenic margins not palpable. MUSCULOSKELETAL: No obvious deformities. No clubbing. No cyanosis. No edema. NEUROLOGICAL: Awake and alert. No obvious cranial nerve deficits. Motor grossly within normal limits. Normal speech. No pronator drift. PSYCHIATRIC: Appropriate mood and affect; insight and judgment normal. Medications and IVs Current Medications Medications (Trade) Dose Ordered Sig/Thomas Route Start Time Stop Time Status Last Admin (Norvasc) 5 mg DAILY PO 09/15/16 09:00 (Aspirin) 325 mg DAILY PO 09/15/16 09:00 (Lipitor) 80 mg HS PO 09/14/16 21:00 (Plavix) 75 mg DAILY PO 09/15/16 09:00 Metoprolol Tartrate 25 mg 25 mg BID PO 09/14/16 21:00 (NS 1000 ml Inj) 1,000 ml @ 100 mls/hr Q10H IV 09/14/16 15:37 09/15/16 01:37 (NS Flush) 2 ml UNSCH PRN IV FLUSH 09/14/16 15:45 (NS Flush) 2 ml BID IV FLUSH 09/14/16 21:00 09/14/16 21:00 (Tylenol) 650 mg Q4H PRN PO 09/14/16 15:45 (Zofran Inj) 4 mg Q6H PRN IVP 09/14/16 15:45 (Dulcolax Supp) 10 mg DAILY PRN RECTAL 09/14/16 15:45 (Colace) 100 mg Q12H PO 09/14/16 16:00 09/14/16 18:18 (Lovenox Inj) 40 mg Q24H SQ 09/14/16 17:00 09/14/16 18:00 (Narcan Inj) 0.4 mg UNSCH PRN IV 09/14/16 15:45 A/P Assessment and Plan 1. 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 Follow in four weeks with Neurology and will give PCP and Cardiology follow up in two days. 2. Hypertension Permissive Hypertension recommended at this time, but improving , taken at this time systolic blood pressure 155 mm Hg. 3. Hyperlipidemia continue Statins. 4. Migraine headache continue Pain medicines and Beta blockers 5. CAD status post Cardiac Cath, history of HI 6. Anxiety disorder as per her Daughter the patient has been under stressful condition in life, will add some Ativan as needed. DVT prophylaxis with Lovenox. Discussed with Patient in the room, nurse Mr. Helm and called her Daughter Mrs. Beatriz Jackson left message to her Code Status Full Code Discharge Planning Discharge Home and No needs as per Physical Therapy. Don Rick MD Sep 15, 2016 08:49
[2016-09-15] MEDS ORDERED: amLODIPine BESYLATE 5 MG TAB PO SCH (09:00)
[2016-09-15] MEDS ORDERED: ASPIRIN 325 MG TAB PO SCH (09:00)
[2016-09-15] MEDS ORDERED: CLOPIDOGREL 75 MG TAB PO SCH (09:00)
[2016-09-15] MEDS: METOPROLOL TARTRATE 25 MG TAB PO SCH (09:35)
--- NOTE | 2016-09-15 11:13 | HHI.DS ---
Discharge Summary Admission Date Sep 14, 2016 at 15:32 Discharge Date: Sep 15, 2016 Admitting Diagnosis stroke alert/CVA (1) LBBB (left bundle branch block) ICD Code: I44.7 Diagnosis: Secondary (2) History of recurrent TIAs ICD Code: Z86.73 Diagnosis: Principal (3) Accelerated hypertension ICD Code: I10 Diagnosis: Principal (4) Transient ischemic attack (TIA) ICD Code: G45.9 Diagnosis: Principal Procedures No procedures performed. Brief History - From Admission This is a pleasant 81 y/o female with previous TIAs as per her Daughter Multiple TIAs in the past one week ago had the last one, has Hypertension, she came to ER today brought in by her Daughter because of headache, 8/10 in intensity on both eyes, she is been diagnosed recently with Ocular Migraine, this started this morning around 10:30 AM she called her Daughter with slurred speech, denied any difficulty walking, numbness or weakness, or any other symptoms. her Daughter concerned about TIA, versus CVA brought her also her blood pressure uncontrolled, she had Stroke alert but not considered for tPA by Neurology specialist. CBC/BMP: 09/15/16 0719 09/15/16 0719 Significant Findings Laboratory Tests Test 09/14/16 09/14/16 09/15/16 13:07 16:50 07:19 Neutrophils (%) (Auto) 73.6 % (16.0-70.0) Bedside Glucose 107 MG/DL (60-95) Troponin I LESS THAN 0.02 LESS THAN 0.02 NG/ML NG/ML (0.02-0.05) (0.02-0.05) Chloride Level 112 MEQ/L (98-107) Estimat Glomerular Filtration 71 ML/MIN (>89) Rate Calcium Level 8.2 MG/DL (8.5-10.1) Total Protein 6.1 GM/DL (6.4-8.2) Albumin 2.9 GM/DL (3.4-5.0) Imaging Last Impressions Brain MRI 09/14/16 1973 Signed Impressions: Service Date/Time: Wednesday, September 14, 2016 15:57 - CONCLUSION: 1. No acute intracranial abnormality is identified. There are no findings to indicate recent ischemia. 2. Chronic changes include generalized atrophy and moderate severity periventricular white matter signal change characteristic of chronic microvascular ischemia. Giovanni Sebastian MD Neck Magnetic Resonance Angiography 09/14/16 0000 Signed Impressions: Service Date/Time: Wednesday, September 14, 2016 15:57 - CONCLUSION: 1. Focal severe stenosis of the right proximal external carotid artery suspected at the bifurcation. 2. No evidence for hemodynamically significant stenosis of either internal carotid artery. 3. Vertebral arteries are widely patent. Eliecer Obregon MD Head CT 09/14/16 0000 Signed Impressions: Service Date/Time: Wednesday, September 14, 2016 13:01 - CONCLUSION: 1. No acute intracranial abnormality is identified. 2. Chronic changes include generalized atrophy and periventricular white matter low attenuation characteristic of chronic microvascular ischemia. Giovanni Sebastian MD PE at Discharge GENERAL: Pleasant elderly white female patient currently in no acute distress. She is well-developed, awake, alert, oriented 3. Normal speech. SKIN: Focused skin assessment warm/dry. HEAD: Atraumatic. Normocephalic. EYES: Pupils equal and round. No scleral icterus. No injection or drainage. ENT: No nasal bleeding or discharge. Mucous membranes pink and moist. NECK: Trachea midline. No JVD. CARDIOVASCULAR: Regular rate and rhythm. No murmur appreciated. RESPIRATORY: No accessory muscle use. Clear to auscultation. Breath sounds equal bilaterally. GASTROINTESTINAL: Abdomen soft, non-tender, nondistended. Hepatic and splenic margins not palpable. MUSCULOSKELETAL: No obvious deformities. No clubbing. No cyanosis. No edema. NEUROLOGICAL: Awake and alert. No obvious cranial nerve deficits. Motor grossly within normal limits. Normal speech. No pronator drift. PSYCHIATRIC: Appropriate mood and affect; insight and judgment normal. Hospital Course This is a pleasant 81 y/o female with previous TIAs as per her Daughter Multiple TIAs in the past one week ago had the last one, has Hypertension, she came to ER today brought in by her Daughter because of headache, 8/10 in intensity on both eyes, she is been diagnosed recently with Ocular Migraine, this started this morning around 10:30 AM she called her Daughter with slurred speech, denied any difficulty walking, numbness or weakness, or any other symptoms. her Daughter concerned about TIA, versus CVA brought her also her blood pressure uncontrolled, she had Stroke alert but not considered for tPA by Neurology specialist. 09/15: Status post Neurology specialist consult with Diagnosis of TIA, Accelerated Hypertension, Ocular Migraine, recommended to continue Aspirin 325 mg and Plavix 75 mg, stable from Neurology for discharge. Holter monitoring for possible PAF given multiple TIA follow by Neurology in four weeks. appreciated assistance by Neurology specialist Doctor Mary Rutherford Assessment and Plan 1. 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 Follow in four weeks with Neurology and will give PCP and Cardiology follow up in two days. 2. Hypertension Permissive Hypertension recommended at this time, but improving , taken at this time systolic blood pressure 155 mm Hg. 3. Hyperlipidemia continue Statins. 4. Migraine headache continue Pain medicines and Beta blockers 5. CAD status post Cardiac Cath, history of ID 6. Anxiety disorder as per her Daughter the patient has been under stressful condition in life, will add some Ativan as needed. DVT prophylaxis with Lovenox. Discussed with Patient in the room, nurse Volodymyr and called her Daughter Mrs. Beatriz Jackson left message to her Code Status Full Code Discharge Planning Discharge Home and No needs as per Physical Therapy. Pt Condition on Discharge: Good Discharge Disposition: Discharge Home Discharge Time: <= 30 minutes Discharge Instructions DIET: Follow Instructions for: Heart Healthy Diet, Diabetic Diet Activities you can perform: Regular-No Restrictions Don Rick MD Sep 15, 2016 11:13
[2016-09-15 11:14] VITALS: O2SAT 94
[2016-09-15 11:41] VITALS: BP 155/60; PULSE 60; RESP 18; TEMP 98; O2SAT 95
--- NOTE | 2016-09-15 20:18 | OTSOAPIP ---
TIME SESSION COMPLETED: 1000 TREATMENT TIME: SCREEN CHART REVIEWED. S: PATIENT DAUGHTER REPORTS PATIENT INDPEENDENT PLOF DOES NOT FEEL SHE NEEDS THERAPY O: DAUGHTER DOES NOT FEEL SHE NEEDS REHAB INTERVENTION A: PATIENT RESPONSE TO TREATMENT:EVAL NOT COMPLETED P: RN NOTIFIED _X_ PT WAS INSTRUCTED TO NOT GET OUT OF BED OR CHAIR WITHOUT ASSISTANCE. CALL WING WAS LEFT WITHIN REACH. DISABILITIES ELEMENTS SCORE - SELF-FEEDING ___X_ 4 = INDEPENDENT: EATS FROM A DISH AND DRINKS FROM A CUP OR GLASS PRESENTED IN THE CUSTOMARY MANNER ON TABLE OR TRAY. USES ORDINARY KNIFE, FORK, AND SPOON. ____ 3 = INDEPENDENT WITH DEVICE: USES AN ADAPTIVE OR ASSISTING DEVICE SUCH A STRAW, SPORK, OR ROCKING KNIFE OR REQUIRES MORE THAN A REASONABLE TIME TO EAT. ____ 2 = DEPENDENT - PARTIAL HELP REQUIRED: PERFORMS HALF OR MORE OF FEEDING TASKS BUT REQUIRES SUPERVISION (E.G., STANDBY, CUEING, OR COAXING), SETUP (APPLICATION OF ORTHOTICS), OR OTHER HELP. ____ 1 = DEPENDENT - TOTAL HELP REQUIRED: EITHER PERFORMS LESS THAN HALF OF FEEDING TASKS, OR DOES NOT EAT OR DRINK FULL MEALS BY MOUTH AND RELIES AT LEAST IN PART ON OTHER MEANS OF ALIMENTATION, SUCH PARENTERAL OR GASTROSTOMY FEEDINGS. INTERDISCIPLINARY COMMUNICATION:EMR DISCHARGE RECOMMENDATION/ATTENTION CASE MANAGEMENT: EQUIPMENT: ___ 3-1 BEDSIDE COMMODE ___ DROP ARM COMMODE ___ SLIDING BOARD ___ SHOWER BENCH ___ NONE ___ OTHER: CONTINUED THERAPY: ___ OT AT REHAB _X__ HOME WITH NO OT RECOMMENDED ___ HOME WITH HOME HEALTH OT ___ HOME WITH OUT PATIENT OT ___ REQUIRES SUPERVISION AT HOME FOR SAFETY ___ OTHER: Therapist: Jossy Wray OTR/L Signature on file
--- NOTE | 2016-09-16 07:12 | EKG ---
Date Performed: 09/14/2016 Time Performed: 13:14:38 PTAGE: 81 years EKG: Sinus rhythm WITH SINUS ARRHYTHMIA LEFT BUNDLE BRANCH BLOCK ABNORMAL ECG Compared to prior tracing no significant change PREVIOUS TRACING : 05/11/2014 13.36 DOCTOR: Chauncey Mancia Interpretating Date/Time 09/16/2016 07:09:54
== END 2016-09-15 12:28 | disposition home or self-care (01) ==
LOC: NEPE 12:49 → UNDOADMIN 15:32 → NEDA 15:32 → INTOOBSV 15:39 → NEDA 15:39 → N05B 18:44 → UNDODISIN 09-15 12:28
PROVIDERS: ADMIT Internal Medicine; ATTEND Internal Medicine
DX: G43.109 Migraine with aura, not intractable, without status migrainosus (principal); R47.81 Slurred speech; I44.7 Left bundle-branch block, unspecified; I10 Essential (primary) hypertension; E78.00 Pure hypercholesterolemia, unspecified; H53.8 Other visual disturbances; I25.10 Atherosclerotic heart disease of native coronary artery without angina pectoris; E78.5 Hyperlipidemia, unspecified; R94.31 Abnormal electrocardiogram [ECG] [EKG]; F41.9 Anxiety disorder, unspecified; Z79.01 Long term (current) use of anticoagulants; Z79.82 Long term (current) use of aspirin; Z86.73 Personal history of transient ischemic attack (TIA), and cerebral infarction without residual deficits; Z82.3 Family history of stroke
CPT/HCPCS: 70450; 70548; 70551; 80048; 80076; 82435; 82550; 82565; 82947; 82948; 84132; 84295; 84484; 84520; 85025; 85384; 85610; 85730; 86850; 86900; 86901; 92610; 93005; 93306; 96125; 96361; 96374; 97162; 99285; A9579; G0378; G8987; G8988; J1650; J2060; J7030

== ENCOUNTER 2017-01-20 17:27 | Emergency (ER) | payer MEDICARE, OTHER ==
[~2017-01-20] VITALS: Ht 157.5 cm; Wt 61.0 kg
[2017-01-20 17:29] VITALS: BP 151/70; PULSE 86; RESP 15; TEMP 98.4; O2SAT 99
--- NOTE | 2017-01-20 19:27 | PD ---
HPI Chief Complaint: GI Complaint Time Seen by Provider: 19:27 Travel History International Travel<30 days: No Contact w/Intl Traveler<30days: No Traveled to known affect area: No History of Present Illness HPI 81-year-old female came to the emergency room brought by her daughter with history of vomiting or discomfort, poor appetite and nausea for past 5 days. Patient says all this started when she started drinking the bowel prep solution prior to colonoscopy. Patient says that every time she drank she vomited but somehow finish the whole agent and got a colonoscopy done by Dr. Ireland on Monday. She was told that she had some small polyps and diverticulosis but nothing major. However the abdominal pain continued and her appetite continued to be poor. She has not had much to eat or drink because of this in past 3 days. No history of vomiting. She has not had a bowel movement in past 4 days. Vital signs are stable. No history of fever or chills. No aggravating or relieving factors for the pain. She shows the pain in the epigastric as well as the lower abdomen. [facility] Past Medical History Narrative Medical List of her past medical, surgical, social and family history was reviewed from the nursing note. 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) Endocrine: No Genitourinary: No Headaches: Yes Hypertension: Yes Musculoskeletal: No Psychiatric: No Respiratory: No Myocardial Infarction: No Radiation Therapy: No Seizures: No : 3 Para: 3 Tubal Ligation: Yes Past Surgical History Abdominal Surgery: No AICD: No Body Medical Devices: VERTIGO Cardiac Surgery: No Coronary Artery Bypass Graft: No Ear Surgery: No Endocrine Surgery: No Eye Surgery: Yes (CATERACT REMOVAL 2003) Genitourinary Surgery: No Gynecologic Surgery: Yes (D AND C X 3 TUBAL LIGATION) Oral Surgery: No Pacemaker: No Thoracic Surgery: No Other Surgery: Yes (RIGHT BREAST BENIGN MASS) Social History Alcohol Use: Yes (OCCASIONALLY) Tobacco Use: No Substance Use: No Allergies-Medications (Allergen,Severity, Reaction): Coded Allergies: codeine (Unverified Allergy, Severe, 01/20/17) NO REACTION GIVEN Sulfa (Sulfonamide Antibiotics) (Unverified Allergy, Unknown, 01/20/17) lisinopril (Unverified Adverse Reaction, Intermediate, Edema, 01/20/17) Comments List of her allergies reviewed from the nursing note. Reported Meds & Prescriptions Reported Meds & Active Scripts Active Zofran Odt (Ondansetron Odt) 4 Mg Tab 4 Mg SL Q6HR PRN Protonix (Pantoprazole Sodium) 40 Mg Tab 40 Mg PO DAILY Reported Hydrochlorothiazide 25 Mg Tab 25 Mg PO DAILY Atorvastatin (Atorvastatin Calcium) 40 Mg Tab 40 Mg PO HS Isosorbide Mononitrate ER (Isosorbide Mononitrate) 30 Mg Erick 30 Mg PO DAILY Percocet (Oxycodone-Acetaminophen) 5-325 mg Tab 1 Tab PO Q4H PRN Aspirin 81 (Aspirin) 81 Mg Tabdr 81 Mg PO DAILY Metoprolol Tartrate 25 Mg Tab 25 Mg PO BID Nitrostat SL (Nitroglycerin) 0.4 Mg Subl 0.4 Mg SL DIRECTED PRN 1 tablet under the tongue as needed for chest pain. Repeat every 5 minutes for a total of 3 DOSES or call 911 if NO relief. Losartan (Losartan Potassium) 100 Mg Tab 100 Mg PO DAILY Amlodipine (Amlodipine Besylate) 5 Mg Tab 5 Mg PO DAILY Plavix (Clopidogrel Bisulfate) 75 Mg Tab 75 Mg PO DAILY Narrative Medication List of her home medications reviewed from the nursing note. Review of Systems Except as stated in HPI: all other systems reviewed are Neg Physical Exam Narrative GENERAL: Awake, alert, mild distress, anxious SKIN: Focused skin assessment warm/dry. HEAD: Atraumatic. Normocephalic. EYES: Pupils equal and round. No scleral icterus. No injection or drainage. ENT: No nasal bleeding or discharge. Dry mucous membrane NECK: Trachea midline. No JVD. CARDIOVASCULAR: Regular rate and rhythm. No murmur appreciated. RESPIRATORY: No accessory muscle use. Clear to auscultation. Breath sounds equal bilaterally. GASTROINTESTINAL: Abdomen soft, non-tender, nondistended. Hepatic and splenic margins not palpable. MUSCULOSKELETAL: No obvious deformities. No clubbing. No cyanosis. No edema. NEUROLOGICAL: Awake and alert. No obvious cranial nerve deficits. Motor grossly within normal limits. Normal speech. PSYCHIATRIC: Appropriate mood and affect; insight and judgment normal. Data Data Last Documented VS Vital Signs Date Time Temp Pulse Resp B/P (MAP) Pulse Ox O2 Delivery O2 Flow Rate FiO2 01/21/17 00:59 80 16 135/77 (96) 100 01/20/17 22:19 Room Air 01/20/17 17:29 98.4 Orders Orders Complete Blood Count With Diff (01/20/17 19:39) Comprehensive Metabolic Panel (01/20/17 19:39) Lipase (01/20/17 19:39) Prothrombin Time / Inr (Pt) (01/20/17 19:39) Urinalysis - C+S If Indicated (01/20/17 19:39) Ct Abd/Pel W/O Iv Contrast (01/20/17 19:39) Iv Access Insert/Monitor (01/20/17 19:39) Ecg Monitoring (01/20/17 19:39) Oximetry (01/20/17 19:39) Sodium Chlor 0.9% 1000 Ml Inj (Ns 1000 M (01/20/17 19:39) Sodium Chloride 0.9% Flush (Ns Flush) (01/20/17 19:45) Electrocardiogram (01/20/17 19:39) Iohexol 350 Inj (Omnipaque 350 Inj) (01/20/17 20:00) Sodium Chlorid 0.9% 500 Ml Inj (Ns 500 M (01/20/17 22:45) Pantoprazole Inj (Protonix Inj) (01/20/17 23:15) Labs Laboratory Tests Test 01/20/17 20:33 01/20/17 22:18 White Blood Count 11.8 TH/MM3 Red Blood Count 5.21 MIL/MM3 Hemoglobin 15.7 GM/DL Hematocrit 47.9 % Mean Corpuscular Volume 91.9 FL Mean Corpuscular Hemoglobin 30.1 PG Mean Corpuscular Hemoglobin Concent 32.8 % Red Cell Distribution Width 14.5 % Platelet Count 314 TH/MM3 Mean Platelet Volume 8.6 FL Neutrophils (%) (Auto) 81.2 % Lymphocytes (%) (Auto) 10.8 % Monocytes (%) (Auto) 6.8 % Eosinophils (%) (Auto) 0.6 % Basophils (%) (Auto) 0.6 % Neutrophils # (Auto) 9.6 TH/MM3 Lymphocytes # (Auto) 1.3 TH/MM3 Monocytes # (Auto) 0.8 TH/MM3 Eosinophils # (Auto) 0.1 TH/MM3 Basophils # (Auto) 0.1 TH/MM3 CBC Comment DIFF FINAL Differential Comment Prothrombin Time 10.6 SEC Prothromb Time International Ratio 1.0 RATIO Blood Urea Nitrogen 35 MG/DL Creatinine 1.27 MG/DL Random Glucose 97 MG/DL Total Protein 7.2 GM/DL Albumin 3.4 GM/DL Calcium Level 8.5 MG/DL Alkaline Phosphatase 124 U/L Aspartate Amino Transf (AST/SGOT) 30 U/L Alanine Aminotransferase (ALT/SGPT) 22 U/L Total Bilirubin 0.6 MG/DL Sodium Level 139 MEQ/L Potassium Level 3.9 MEQ/L Chloride Level 108 MEQ/L Carbon Dioxide Level 24.7 MEQ/L Anion Gap 6 MEQ/L Estimat Glomerular Filtration Rate 40 ML/MIN Lipase 279 U/L Urine Color YELLOW Urine Turbidity HAZY Urine pH 5.0 Urine Specific [place] 1.024 Urine Protein TRACE mg/dL Urine Glucose (UA) NEG mg/dL Urine Ketones 10 mg/dL Urine Occult Blood NEG Urine Nitrite NEG Urine Bilirubin NEG Urine Urobilinogen LESS THAN 2.0 MG/DL Urine Leukocyte Esterase LARGE Urine RBC 5 /hpf Urine WBC 7 /hpf Urine Squamous Epithelial Cells 4 /hpf Urine Transitional Epithelial Cells 1 /hpf Urine Amorphous Sediment RARE Urine Bacteria FEW /hpf Urine Hyaline Casts 2 /lpf Urine Mucus FEW /lpf Microscopic Urinalysis Comment CULT NOT INDICATED MDM Medical Decision Making Medical Screen Exam Complete: Yes Emergency Medical Condition: Yes Medical Record Reviewed: Yes Interpretation(s) Twelve-lead EKG was reviewed by me. Normal sinus rhythm, left axis deviation, left bundle branch block which is old. Heart rate of 67 bpm. Differential Diagnosis Acute diverticulitis, UTI, acute pyelonephritis, Benoit night abnormality, dehydration, colitis Narrative Course 10:25 PM blood test results of back and within normal limits. CT scan shows possible duodenitis but otherwise negative. Awaiting for the UA. Patient was given a liter of IV fluid bolus. 11:16 PM urine is back and no signs of UTI. Patient will be discharged home on Protonix prescription and Zofran. After given her dose of Protonix as well. Procedures EKG Prior to Arrival: No Diagnosis Primary Impression: Dehydration Additional Impression: Duodenitis Referrals: John Ireland MD 3 days Additional Instructions: Take clear liquid diet for the next 2-3 days. Call your GI specialist office on Monday. He would require an upper endoscopy. Take the medications as per the prescription direction. Return to the ER if the condition worsens or any other new concerns. Med/Other Pt SpecificInfo: Prescription(s) given Scripts Ondansetron Odt (Zofran Odt) 4 Mg Tab 4 MG SL Q6HR Y for Nausea/Vomiting, #15 TAB 0 Refills Prov: Reginaldo Frederick MD 01/20/17 Pantoprazole (Protonix) 40 Mg Tab 40 MG PO DAILY for Reflux, #30 TAB 0 Refills Prov: Reginaldo Frederick MD 01/20/17 Disposition: 01 DISCHARGE HOME Condition: Stable Reginaldo Frederick MD Jan 20, 2017 19:27
[2017-01-20] MEDS ORDERED: SODIUM CHLOR 0.9% 1000 ML INJ 1,000 ML IV SCH (19:39)
[2017-01-20] MEDS ORDERED: SODIUM CHLORIDE 0.9% FLUSH 10 ML FLUSH IV FLUSH PRN (19:45)
[2017-01-20] MEDS ORDERED: IOHEXOL 350 MG/ML 10 ML VIAL (for RAD DIAG) IV ONE (20:00)
--- NOTE | 2017-01-20 20:17 | RADRPT ---
EXAM DATE/TIME: 01/20/2017 19:51 [facility] COMPARISON: No previous studies available for comparison. INDICATIONS : Recent colonoscopy with new vomiting and nausea. ORAL CONTRAST: No oral contrast ingested. RADIATION DOSE: 7.61 CTDIvol (mGy) MEDICAL HISTORY : Cerebrovascular disease. Cardiovascular disease Hard of hearing. SURGICAL HISTORY : Tubal ligation. Autoimmune disease ENCOUNTER: Initial ACUITY: 3 days PAIN SCALE: 7/10 LOCATION: Bilateral abdominal TECHNIQUE: Volumetric scanning of the abdomen and pelvis was performed. Using automated exposure control and ad justment of the mA and/or kV according to patient size, radiation dose was kept as low as reasonably achievable to obtain optimal diagnostic quality images. DICOM format image data is available electro nically for review and comparison. FINDINGS: No evidence of perforation. There is mild wall thickening and edema of the duodenum, especially the s econd and third portions, suggesting a low-grade duodenitis. CT appearance of the colon within normal limits. No acute abnormality seen of the solid organs. Probable sludge or dependently layering small stones i n the gallbladder. CONCLUSION: Apparent mild duodenitis in the proper clinical setting. Otherwise no acute abnormality demonstrated. No evidence of perforation. Giovanni Hall MD on January 20, 2017 at 20:13 Board Certified Radiologist. This report was verified electronically.
[2017-01-20 20:27] VITALS: BP 161/73; PULSE 72; RESP 18; O2SAT 96
[2017-01-20] MEDS ORDERED: LOSA100T PO (20:37)
[2017-01-20] MEDS ORDERED: PERC5TAB12 PO (20:37)
[2017-01-20] MEDS ORDERED: AMLO5TAB2 PO (20:37)
[2017-01-20] MEDS ORDERED: ASPI-110 PO (20:37)
[2017-01-20] MEDS ORDERED: NITR0.4S SL (20:37)
[2017-01-20] MEDS ORDERED: METO25TA3 PO (20:37)
[2017-01-20] MEDS ORDERED: ATOR40TA16 PO (20:37)
[2017-01-20] MEDS ORDERED: PLAV75TA29 PO (20:37)
[2017-01-20] MEDS ORDERED: ISOS30TA3 PO (20:37)
[2017-01-20] MEDS ORDERED: HYDR25TA5 PO (20:37)
[2017-01-20 20:49] LABS: AUTOMATED NEUTROPHIL # 9.6 TH/MM3 (1.8-7.7); BASOPHIL # 0.1 TH/MM3 (0-0.2); BASOPHIL % 0.6 % (0.0-2.0); EOSINOPHIL # 0.1 TH/MM3 (0-0.4); EOSINOPHIL % 0.6 % (0.0-4.0); HEMATOCRIT 47.9 % (35.0-46.0); HEMO FLAGS DIFF FINAL; LYMPH % 10.8 % (9.0-44.0); LYMPHOCYTE # 1.3 TH/MM3 (1.0-4.8); MEAN CELL VOLUME 91.9 FL (80.0-100.0); MEAN CORPUSCULAR HEMOGLOBIN 30.1 PG (27.0-34.0); MEAN CORPUSCULAR HGB CONC 32.8 % (32.0-36.0); MONO % 6.8 % (0.0-8.0); NEUT % 81.2 % (16.0-70.0); PLATELET COUNT 314 TH/MM3 (150-450); RED BLOOD COUNT 5.21 MIL/MM3 (4.00-5.30); RED CELL DISTRIBUTION WIDTH 14.5 % (11.6-17.2); WHITE BLOOD COUNT 11.8 TH/MM3 (4.0-11.0)
[2017-01-20 21:00] LABS: PROTHROMBIN TIME - PATIENT 10.6 SEC (9.8-11.6)
[2017-01-20 21:09] LABS: ALT (GPT) 22 U/L (10-53); ANION GAP 6 MEQ/L (5-15); AST (GOT) 30 U/L (15-37); BICARBONATE 24.7 MEQ/L (21.0-32.0); BLOOD UREA NITROGEN 35 MG/DL (7-18); CHLORIDE 108 MEQ/L (98-107); GLOMERULAR FILTRATION RATE 40 ML/MIN (>89); POTASSIUM 3.9 MEQ/L (3.5-5.1); SODIUM (NA) 139 MEQ/L (136-145)
[2017-01-20 21:12] LABS: ALKALINE PHOSPHATASE 124 U/L (45-117); TOTAL BILIRUBIN ADULT 0.6 MG/DL (0.2-1.0)
[2017-01-20 22:19] VITALS: BP 156/71; PULSE 78; RESP 18; O2SAT 96
[2017-01-20] MEDS ORDERED: SODIUM CHLORID 0.9% 500 ML INJ 500 ML IV ONE (22:45)
[2017-01-20 23:02] LABS: BACTERIA, URINE FEW /hpf; BLOOD, URINE NEG (NEG); COMMENT (UR) CULT NOT INDICATED; CULTURE IF INDICATED CULT NOT INDICATED; GLUCOSE,URINE NEG (NEG); HYALINE CAST, URINE 2 /lpf (RARE); KETONE, URINE 10 mg/dL (NEG); MUCUS URINE FEW /lpf (OCC); NITRITE,URINE NEG (NEG); SQUAMOUS EPITHELIAL CELL URINE 4 /hpf (0-5); TRANSITIONAL EPI CELLS, URINE 1 /hpf; URINE COLOR YELLOW (YELLW/STRAW)
[2017-01-20] MEDS ORDERED: PANTOPRAZOLE SODIUM 40 MG VIAL IV PUSH ONE (23:15)
[2017-01-20] MEDS ORDERED: ZOFR4TAB3 SL (23:18)
[2017-01-20] MEDS ORDERED: PROT40TA PO (23:18)
[2017-01-21 00:59] VITALS: BP 135/77
--- NOTE | 2017-01-21 15:22 | EKG ---
Date Performed: 01/20/2017 Time Performed: 20:20:19 PTAGE: 81 years EKG: Sinus rhythm LEFT BUNDLE BRANCH BLOCK ABNORMAL ECG PREVIOUS TRACING : 09/14/2016 13.14 Compared to previous tracing, sinus arrhythmia no longer pr esent. Otherwise, no significant change. DOCTOR: Lyndon Astorga Interpretating Date/Time 01/21/2017 15:21:00
== END 2017-01-21 00:50 | disposition home or self-care (01) ==
LOC: NEPE 17:27
DX: E86.0 Dehydration (principal); K29.80 Duodenitis without bleeding; I44.7 Left bundle-branch block, unspecified
CPT/HCPCS: 74176; 80053; 81001; 83690; 85025; 85610; 93005; 96361; 96374; 99285; C9113; J7030; J7040; Q9967

== ENCOUNTER 2017-06-28 15:36 | Inpatient (IN) | payer MEDICARE, OTHER ==
[~2017-06-28] VITALS: Ht 160 cm; Wt 65.9 kg
[~2017-06-28 15:36] MED LIST changes: -AMLO5 PO; +AMLO5TAB2 PO; +ASPI1TAB57 PO; -ASPI325T PO; +ATOR40TA16 PO; -ATOR80TA41 PO; -CLOP75 PO; -ENAL5TAB98; +HYDR25TA5 PO; +ISOS30TA3 PO; +LOSA100T PO; -METO25 PO; +METO25TA3 PO; -NITR.4 SL; +NITR0.4S SL; +PLAV75TA29 PO; +PROT40TA PO; +ZOFR4TAB3 SL
[2017-06-28 15:46] VITALS: BP 206/91; PULSE 74; RESP 15; O2SAT 98
[2017-06-28 15:53] VITALS: BP 206/91; PULSE 78; RESP 15; O2SAT 98
[2017-06-28] MEDS ORDERED: SODIUM CHLORIDE 0.9% FLUSH 10 ML FLUSH IVF PRN (16:00)
[2017-06-28] MEDS ORDERED: MORPHINE SULFATE 2 MG/ML INJ IV PUSH ONE ×2 (16:00→18:30)
--- NOTE | 2017-06-28 16:06 | PD ---
HPI Chief Complaint: Hip Injury Time Seen by Provider: 15:50 Travel History International Travel<30 days: No Contact w/Intl Traveler<30days: No Traveled to known affect area: No History of Present Illness HPI Send 81-year-old woman who presents to the emergency department complaining of left hip pain. She states that she got up from the couch, felt like her leg was asleep, went for an think she tripped over the leg of the rocking chair. She fell and injured her right ankle, her left hip, and a small amount on her left hand. She has severe pain significant pain and tightness when she tries to move her left hip at all. She was unable to get up off the ground. She otherwise has been feeling generally well and healthy. Her blood pressure is been elevated for the past several days. No cough cold symptoms. No lightheadedness passing out syncope. She doesn't believe she hit her head. She is on aspirin and Plavix. History Past Medical History Narrative Medical Hypertension Diabetes Hyperlipidemia History of TIAs : 3 Para: 3 Social History Alcohol Use: Yes (OCCASIONALLY) Tobacco Use: No Allergies-Medications (Allergen,Severity, Reaction): Coded Allergies: codeine (Verified Allergy, Severe, 06/28/17) NO REACTION GIVEN Sulfa (Sulfonamide Antibiotics) (Verified Allergy, Unknown, 06/28/17) lisinopril (Verified Adverse Reaction, Intermediate, Edema, 06/28/17) Reported Meds & Prescriptions Reported Meds & Active Scripts Active Reported Atorvastatin (Atorvastatin Calcium) 40 Mg Tab 40 Mg PO HS Isosorbide Mononitrate ER (Isosorbide Mononitrate) 30 Mg Erick 30 Mg PO DAILY Aspirin 81 (Aspirin) 81 Mg Tabdr 162 Mg PO DAILY Metoprolol Tartrate 25 Mg Tab 25 Mg PO BID Nitrostat SL (Nitroglycerin) 0.4 Mg Subl 0.4 Mg SL DIRECTED PRN 1 tablet under the tongue as needed for chest pain. Repeat every 5 minutes for a total of 3 DOSES or call 911 if NO relief. Losartan (Losartan Potassium) 100 Mg Tab 100 Mg PO DAILY Plavix (Clopidogrel Bisulfate) 75 Mg Tab 75 Mg PO DAILY Review of Systems Except as stated in HPI: all other systems reviewed are Neg Physical Exam Narrative GENERAL: Well-appearing 6 year-old woman, no acute distress. SKIN: Focused skin assessment warm/dry. HEAD: Atraumatic. Normocephalic. EYES: Pupils equal and round. No scleral icterus. No injection or drainage. ENT: No nasal bleeding or discharge. Mucous membranes pink and moist. NECK: Trachea midline. Moves neck freely. CARDIOVASCULAR: Regular rate and rhythm. No murmur appreciated. RESPIRATORY: No accessory muscle use. Clear to auscultation. Breath sounds equal bilaterally. GASTROINTESTINAL: Abdomen soft, non-tender, nondistended. Hepatic and splenic margins not palpable. MUSCULOSKELETAL: Left lower extremity a little bit shortened. Pain with range of motion of the hip. Knee and ankle are unremarkable. Right lower Lina over the pain over the very proximal dorsum of the foot distal ankle, pain with palpation. No swelling or deformity. Upper extremity exams are overall unremarkable. NEUROLOGICAL: Awake and alert. No obvious cranial nerve deficits. Motor grossly within normal limits. Normal speech. PSYCHIATRIC: Appropriate mood and affect; insight and judgment normal. Data Data Last Documented VS Vital Signs Date Time Temp Pulse Resp B/P (MAP) Pulse Ox O2 Delivery O2 Flow Rate FiO2 06/28/17 16:12 75 15 206/91 (129) 96 Room Air Orders Orders Electrocardiogram (06/28/17 15:57) Complete Blood Count With Diff (06/28/17 15:57) Comprehensive Metabolic Panel (06/28/17 15:57) Prothrombin Time / Inr (Pt) (06/28/17 15:57) Act Partial Throm Time (Ptt) (06/28/17 15:57) Urinalysis - C+S If Indicated (06/28/17 15:57) Type And Screen (06/28/17 15:57) Chest, Single Ap (06/28/17 15:57) Hip, Uni(Ap&Lat) W Ap Pelvis (06/28/17 15:57) Iv Access Insert/Monitor (06/28/17 15:57) Oximetry (06/28/17 15:57) Ecg Monitoring (06/28/17 15:57) Sodium Chloride 0.9% Flush (Ns Flush) (06/28/17 16:00) Diet Npo (06/28/17 Dinner) Ankle, Complete ([id number]) (06/28/17 ) Morphine Inj (Morphine Inj) (06/28/17 16:00) Ct Brain W/O Iv Contrast(Rout) (06/28/17 ) Consult Orthopedic (06/28/17 ) (Hub Use Only)Inp Phy Cons/Ref (06/28/17 ) Cath For Specimen (06/28/17 17:42) Traction (06/28/17 17:42) Urinary Catheter Insert/Apply (06/28/17 18:27) Morphine Inj (Morphine Inj) (06/28/17 18:30) Morphine Inj (Morphine Inj) (06/28/17 18:29) Admit Order (Ed Use Only) (06/28/17 ) Admit To Inpatient (06/28/17 ) Vital Signs (Adult) Q4H (06/28/17 19:02) Activity Oob With Assistance (06/28/17 19:02) Usability Strategist / Telemetry .CONTINUOUS (06/28/17 19:02) Sodium Chloride 0.9% Flush (Ns Flush) (06/28/17 19:15) Sodium Chloride 0.9% Flush (Ns Flush) (06/28/17 21:00) Basic Metabolic Panel (Bmp) (06/29/17 06:00) Complete Blood Count With Diff (06/29/17 06:00) Case Management Consult (06/28/17 19:02) Naloxone Inj (Narcan Inj) (06/28/17 19:15) Inpatient Certification (06/28/17 ) Morphine Inj (Morphine Inj) (06/28/17 19:15) Npo After Midnight W/ Po Meds (06/29/17 Breakfast) Isosorbide Mononitrate (Imdur) (06/29/17 09:00) Losartan (Cozaar) (06/29/17 09:00) Metoprolol Tartrate (Lopressor) (06/28/17 21:00) Labs Laboratory Tests Test 06/28/17 16:00 06/28/17 18:15 White Blood Count 10.7 TH/MM3 Red Blood Count 4.55 MIL/MM3 Hemoglobin 13.9 GM/DL Hematocrit 41.4 % Mean Corpuscular Volume 91.0 FL Mean Corpuscular Hemoglobin 30.6 PG Mean Corpuscular Hemoglobin Concent 33.6 % Red Cell Distribution Width 13.8 % Platelet Count 269 TH/MM3 Mean Platelet Volume 7.9 FL Neutrophils (%) (Auto) 84.7 % Lymphocytes (%) (Auto) 9.3 % Monocytes (%) (Auto) 4.8 % Eosinophils (%) (Auto) 0.5 % Basophils (%) (Auto) 0.7 % Neutrophils # (Auto) 9.1 TH/MM3 Lymphocytes # (Auto) 1.0 TH/MM3 Monocytes # (Auto) 0.5 TH/MM3 Eosinophils # (Auto) 0.1 TH/MM3 Basophils # (Auto) 0.1 TH/MM3 CBC Comment DIFF FINAL Differential Comment Prothrombin Time 10.0 SEC Prothromb Time International Ratio 1.0 RATIO Activated Partial Thromboplast Time 23.6 SEC Blood Urea Nitrogen 26 MG/DL Creatinine 1.06 MG/DL Random Glucose 111 MG/DL Total Protein 7.7 GM/DL Albumin 3.8 GM/DL Calcium Level 8.9 MG/DL Alkaline Phosphatase 146 U/L Aspartate Amino Transf (AST/SGOT) 38 U/L Alanine Aminotransferase (ALT/SGPT) 40 U/L Total Bilirubin 0.4 MG/DL Sodium Level 140 MEQ/L Potassium Level 4.7 MEQ/L Chloride Level 107 MEQ/L Carbon Dioxide Level 27.2 MEQ/L Anion Gap 6 MEQ/L Estimat Glomerular Filtration Rate 50 ML/MIN Urine Color YELLOW Urine Turbidity CLEAR Urine pH 7.0 Urine Specific [place] 1.011 Urine Protein NEG mg/dL Urine Glucose (UA) NEG mg/dL Urine Ketones NEG mg/dL Urine Occult Blood NEG Urine Nitrite NEG Urine Bilirubin NEG Urine Urobilinogen LESS THAN 2.0 MG/DL Urine Leukocyte Esterase NEG Urine RBC 1 /hpf Urine WBC LESS THAN 1 /hpf Urine Squamous Epithelial Cells <1 /hpf Urine Mucus FEW /lpf Microscopic Urinalysis Comment CATH-CULT NOT IND MDM Medical Decision Making Medical Screen Exam Complete: Yes Emergency Medical Condition: Yes Interpretation(s) My review of EKG: Normal sinus rhythm at a rate of 75, left bundle branch block , left axis deviation, no acute ischemia. My result of pelvis and hip x-ray: Left hip femoral neck fracture. My review of ankle x-ray: Negative. CT head: Negative LABS: CBC is unremarkable. CMP is unremarkable. Mildly elevated BUN/creatinine. Coags unremarkable. Differential Diagnosis Hip fracture, pelvic fracture, ankle injury, occult head injury, other Narrative Course Medical decision making INITIAL cause an 80 year-old woman presents to the emergency department complaining of trip and fall and left hip pain, also the right ankle pain, blood pressures been very elevated, states she felt funny with left lower extremity paresthesias before she fell. History of TIAs. We'll check CT head. Saul Berger MD Jun 28, 2017 16:06
[2017-06-28 16:12] VITALS: BP 206/91; PULSE 75; RESP 15; O2SAT 96
[2017-06-28 16:14] LABS: AUTOMATED NEUTROPHIL # 9.1 TH/MM3 (1.8-7.7); BASOPHIL # 0.1 TH/MM3 (0-0.2); BASOPHIL % 0.7 % (0.0-2.0); EOSINOPHIL # 0.1 TH/MM3 (0-0.4); EOSINOPHIL % 0.5 % (0.0-4.0); HEMATOCRIT 41.4 % (35.0-46.0); HEMOGLOBIN 13.9 GM/DL (11.6-15.3); LYMPH % 9.3 % (9.0-44.0); MEAN CORPUSCULAR HEMOGLOBIN 30.6 PG (27.0-34.0); MEAN CORPUSCULAR HGB CONC 33.6 % (32.0-36.0); MEAN PLATELET VOLUME 7.9 FL (7.0-11.0); MONO % 4.8 % (0.0-8.0); MONOCYTE # 0.5 TH/MM3 (0-0.9); NEUT % 84.7 % (16.0-70.0); PLATELET COUNT 269 TH/MM3 (150-450); RED BLOOD COUNT 4.55 MIL/MM3 (4.00-5.30); RED CELL DISTRIBUTION WIDTH 13.8 % (11.6-17.2); WHITE BLOOD COUNT 10.7 TH/MM3 (4.0-11.0)
[2017-06-28 16:42] LABS: ALBUMIN 3.8 GM/DL (3.4-5.0); ALT (GPT) 40 U/L (10-53); AST (GOT) 38 U/L (15-37); BICARBONATE 27.2 MEQ/L (21.0-32.0); BLOOD UREA NITROGEN 26 MG/DL (7-18); CALCIUM 8.9 MG/DL (8.5-10.1); CHLORIDE 107 MEQ/L (98-107); CREATININE 1.06 MG/DL (0.50-1.00); GLOMERULAR FILTRATION RATE 50 ML/MIN (>89); GLUCOSE,RANDOM 111 MG/DL (74-106); SODIUM (NA) 140 MEQ/L (136-145)
[2017-06-28 16:44] LABS: ALKALINE PHOSPHATASE 146 U/L (45-117); TOTAL BILIRUBIN ADULT 0.4 MG/DL (0.2-1.0); TOTAL PROTEIN 7.7 GM/DL (6.4-8.2)
--- NOTE | 2017-06-28 16:48 | RADRPT ---
EXAM DATE/TIME: 06/28/2017 16:27 [facility] COMPARISON: CT BRAIN W/O CONTRAST, September 14, 2016, 13:01. INDICATIONS : Head pain due to fall. RADIATION DOSE: 56.35 CTDIvol (mGy) MEDICAL HISTORY : Hypertension. Cardiovascular disease Cerebrovascular disease. SURGICAL HISTORY : Tubal ligation. ENCOUNTER: Initial ACUITY: 1 day PAIN SCALE: 9/10 LOCATION: Bilateral cranial TECHNIQUE: Multiple contiguous axial images were obtained of the head. Using automated exposure control and adj ustment of the mA and/or kV according to patient size, radiation dose was kept as low as reasonably a chievable to obtain optimal diagnostic quality images. DICOM format image data is available electro nically for review and comparison. FINDINGS: CEREBRUM: Mild cortical and central atrophy. Periventricular areas of diminished attenuation are characteristic of small vessel ischemic demyelination. No evidence of midline shift, mass lesion, hemorrhage or acu te infarction. No extra-axial fluid collections are seen. POSTERIOR FOSSA: The cerebellum and brainstem are intact. The 4th ventricle is midline. The cerebellopontine angle i s unremarkable. EXTRACRANIAL: The visualized portion of the orbits is intact. SKULL: The calvaria is intact. No evidence of skull fracture. CONCLUSION: 1. Stable chronic changes with cortical and central atrophy as well as periventricular small vessel i schemic myelination. 2. Nothing acute. Ashok Vazquez MD on June 28, 2017 at 16:44 Board Certified Radiologist. This report was verified electronically.
--- NOTE | 2017-06-28 17:29 | RADRPT ---
EXAM DATE/TIME: 06/28/2017 16:47 [facility] COMPARISON: CHEST SINGLE AP, May 10, 2014, 10:46. INDICATIONS : Trauma due to fall. MEDICAL HISTORY : Hypertension. Cardiovascular disease Cerebrovascular disease. SURGICAL HISTORY : Tubal ligation. ENCOUNTER: Initial ACUITY: 1 day PAIN SCORE: 0/10 LOCATION: Bilateral chest FINDINGS: The lungs are clear. The heart is minimally enlarged. The pulmonary vascularity is normal. There is n o evidence for infiltrate or failure. The portion of the bony skeleton visualized is unremarkable. CONCLUSION: Compensated cardiomegaly otherwise negative . There is no pneumothorax or rib fractu re. Yrn Stevenson MD FACR on June 28, 2017 at 17:26 Board Certified Radiologist. This report was verified electronically.
--- NOTE | 2017-06-28 17:30 | RADRPT ---
EXAM DATE/TIME: 06/28/2017 16:44 [facility] COMPARISON: No previous studies available for comparison. INDICATIONS : Trauma due to fall. MEDICAL HISTORY : Hypertension. Cardiovascular disease Cerebrovascular disease. SURGICAL HISTORY : Tubal ligation. ENCOUNTER: Initial ACUITY: 1 day PAIN SCORE: 2/10 LOCATION: Right ankle FINDINGS: Three view exam was performed of the right ankle. The bony structures are in normal alignment. No e vidence of fracture, dislocation, or soft tissue swelling. The ankle mortise is intact. No radiopaq ue foreign bodies are seen. Bony mineralization is normal. CONCLUSION: Negative for fracture or dislocation. Follow up in 7-10 days is suggested if symptoms persist. Yrn Stevenson MD FACR on June 28, 2017 at 17:27 Board Certified Radiologist. This report was verified electronically.
--- NOTE | 2017-06-28 17:31 | RADRPT ---
EXAM DATE/TIME: 06/28/2017 16:44 [facility] COMPARISON: No previous studies available for comparison. INDICATIONS : Trauma due to fall. MEDICAL HISTORY : Hypertension. Cardiovascular disease Cerebrovascular disease. SURGICAL HISTORY : Tubal ligation. ENCOUNTER: Initial ACUITY: 1 day PAIN SCORE: 2/10 LOCATION: Left hip FINDINGS: Basi cervical fracture left femoral neck. Pelvis intact. Right hip normal. CONCLUSION: Basi cervical fracture left femoral neck. Femoral head aligned with the acetabulum.. Yrn Stevenson MD FACR on June 28, 2017 at 17:28 Board Certified Radiologist. This report was verified electronically.
[2017-06-28] MEDS ORDERED: MORPHINE SULFATE 4 MG/ML INJ ONE (18:29)
[2017-06-28 18:41] LABS: BILIRUBIN, URINE NEG (NEG); BLOOD, URINE NEG (NEG); GLUCOSE,URINE NEG (NEG); KETONE, URINE NEG (NEG); MUCUS URINE FEW /lpf (OCC); NITRITE,URINE NEG (NEG); SQUAMOUS EPITHELIAL CELL URINE <1 /hpf (0-5); URINE COLOR YELLOW (YELLW/STRAW); URINE LEUKOCYTE ESTERASE NEG (NEG)
[2017-06-28] MEDS ORDERED: NALOXONE HCL 0.4 MG/ML AMP IV PUSH PRN (19:15)
[2017-06-28] MEDS ORDERED: SODIUM CHLORIDE 0.9% FLUSH 10 ML FLUSH IV FLUSH PRN (19:15)
[2017-06-28 20:03] VITALS: BP 235/96; PULSE 91; RESP 16; O2SAT 94
[2017-06-28] MEDS: MORPHINE SULFATE 2 MG/ML INJ IV PUSH PRN (20:13)
[2017-06-28] MEDS: METOPROLOL TARTRATE 25 MG TAB PO SCH (20:13)
[2017-06-28] MEDS: SODIUM CHLORIDE 0.9% FLUSH 10 ML FLUSH IV FLUSH SCH (20:13)
[2017-06-28 21:13] VITALS: BP 160/79; PULSE 79; RESP 16; O2SAT 97
--- NOTE | 2017-06-28 21:21 | HHI.HP ---
[facility] Primary [facility] Physician Apple Thomas MD Admission Diagnosis Hip Fracture Diagnoses: Travel History International Travel<30 Days: No Contact w/Intl Traveler <30 Da: No Traveled to Known Affected Are: No History of Present Illness 81-year-old female with a past medical history significant for TIA, CAD, hypertension and hyperlipidemia presents to the emergency department after suffering a fall. The patient reports she got off her couch to answer the door and her right foot was asleep. She states she tripped over a nearby rocking chair and landed on her left side. She denies any loss of consciousness or syncope. She denies any head trauma. She reports pain in her left hip. Review of Systems Denies fever or chills Denies blurry vision, otorrhea, rhinorrhea Denies sore throat and cough No chest pain, palpitations No shortness of breath or wheezing No abdominal pain Denies constipation/diarrhea/nausea/vomiting Denies muscle pain Denies focal weakness No rashes Past Family Social History Past Medical History TIA PA in 2013 Hypertension Hyperlipidemia Past Surgical History BTL Cardiac catheterization without stent placement Reported Medications Reported Meds & Active Scripts Active Reported Atorvastatin (Atorvastatin Calcium) 40 Mg Tab 40 Mg PO HS Isosorbide Mononitrate ER (Isosorbide Mononitrate) 30 Mg Erick 30 Mg PO DAILY Aspirin 81 (Aspirin) 81 Mg Tabdr 162 Mg PO DAILY Metoprolol Tartrate 25 Mg Tab 25 Mg PO BID Nitrostat SL (Nitroglycerin) 0.4 Mg Subl 0.4 Mg SL DIRECTED PRN 1 tablet under the tongue as needed for chest pain. Repeat every 5 minutes for a total of 3 DOSES or call 911 if NO relief. Losartan (Losartan Potassium) 100 Mg Tab 100 Mg PO DAILY Plavix (Clopidogrel Bisulfate) 75 Mg Tab 75 Mg PO DAILY Allergies: Coded Allergies: codeine (Verified Allergy, Severe, 06/28/17) NO REACTION GIVEN Sulfa (Sulfonamide Antibiotics) (Verified Allergy, Unknown, 06/28/17) lisinopril (Verified Adverse Reaction, Intermediate, Edema, 06/28/17) Family History Father with CVA Social History Rare alcohol use. Denies tobacco, illicit drugs Physical Exam Vital Signs Vital Signs Date Time Temp Pulse Resp B/P (MAP) Pulse Ox O2 Delivery O2 Flow Rate FiO2 06/28/17 20:03 91 16 235/96 (142) 94 Nasal Cannula 2.00 06/28/17 16:12 75 15 206/91 (129) 96 Room Air 06/28/17 15:53 95 Room Air 06/28/17 15:53 78 15 206/91 (129) 98 Room Air 06/28/17 15:46 74 15 206/91 (129) 98 Physical Exam GENERAL: female lying in bed SKIN: No rashes, ecchymoses or lesions. Cool and dry. HEAD: Atraumatic. Normocephalic. No temporal or scalp tenderness. EYES: Pupils equal round and reactive. Extraocular motions intact. No scleral icterus. No injection or drainage. ENT: Nose without bleeding, purulent drainage or septal hematoma. Throat without erythema, tonsillar hypertrophy or exudate. Uvula midline. Airway patent. NECK: Trachea midline. No JVD or lymphadenopathy. Supple, nontender, no meningeal signs. CARDIOVASCULAR: Regular rate and rhythm without murmurs, gallops, or rubs. RESPIRATORY: Clear to auscultation. Breath sounds equal bilaterally. No wheezes , rales, or rhonchi. GASTROINTESTINAL: Abdomen soft, non-tender, nondistended. No hepato-splenomegaly , or palpable masses. No guarding. MUSCULOSKELETAL: Extremities without clubbing, cyanosis, or edema. Left lower extremity in traction, neurovascularly intact. NEUROLOGICAL: Awake and alert. Cranial nerves II through XII intact. Motor and sensory grossly within normal limits. Normal speech. Laboratory Laboratory Tests Test 06/28/17 16:00 06/28/17 18:15 White Blood Count 10.7 Red Blood Count 4.55 Hemoglobin 13.9 Hematocrit 41.4 Mean Corpuscular Volume 91.0 Mean Corpuscular Hemoglobin 30.6 Mean Corpuscular Hemoglobin Concent 33.6 Red Cell Distribution Width 13.8 Platelet Count 269 Mean Platelet Volume 7.9 Neutrophils (%) (Auto) 84.7 Lymphocytes (%) (Auto) 9.3 Monocytes (%) (Auto) 4.8 Eosinophils (%) (Auto) 0.5 Basophils (%) (Auto) 0.7 Neutrophils # (Auto) 9.1 Lymphocytes # (Auto) 1.0 Monocytes # (Auto) 0.5 Eosinophils # (Auto) 0.1 Basophils # (Auto) 0.1 CBC Comment DIFF FINAL Differential Comment Prothrombin Time 10.0 Prothromb Time International Ratio 1.0 Activated Partial Thromboplast Time 23.6 Blood Urea Nitrogen 26 Creatinine 1.06 Random Glucose 111 Total Protein 7.7 Albumin 3.8 Calcium Level 8.9 Alkaline Phosphatase 146 Aspartate Amino Transf (AST/SGOT) 38 Alanine Aminotransferase (ALT/SGPT) 40 Total Bilirubin 0.4 Sodium Level 140 Potassium Level 4.7 Chloride Level 107 Carbon Dioxide Level 27.2 Anion Gap 6 Estimat Glomerular Filtration Rate 50 Urine Color YELLOW Urine Turbidity CLEAR Urine pH 7.0 Urine Specific [place] 1.011 Urine Protein NEG Urine Glucose (UA) NEG Urine Ketones NEG Urine Occult Blood NEG Urine Nitrite NEG Urine Bilirubin NEG Urine Urobilinogen LESS THAN 2.0 Urine Leukocyte Esterase NEG Urine RBC 1 Urine WBC LESS THAN 1 Urine Squamous Epithelial Cells <1 Urine Mucus FEW Microscopic Urinalysis Comment CATH-CULT NOT IND Result Diagram: 06/28/17 1600 06/28/17 1600 Caprini VTE Risk Assessment Caprini VTE Risk Assessment: Mod/High Risk (score >= 2) Caprini Risk Assessment Model Point Value = 1 Point Value = 2 Point Value = 3 Point Value = 5 Age 41-60 Minor surgery BMI > 25 kg/m2 Swollen legs Varicose veins or History of unexplained or recurrent spontaneous Oral contraceptives or hormone replacement Sepsis (< 1 month) Serious lung disease, including pneumonia (< 1 month) Abnormal pulmonary function Acute myocardial infarction Congestive heart failure (< 1 month) History of inflammatory bowel disease Medical patient at bed rest Age 61-74 Arthroscopic surgery Major open surgery (> 45 min) Laparoscopic surgery (> 45 min) Malignancy Confined to bed (> 72 hours) Immobilizing plaster cast Central venous access Age >= 75 History of VTE Family history of VTE Factor V Leiden Prothrombin [id number] Lupus anticoagulant Anticardiolipin antibodies Elevated serum homocysteine Heparin-induced thrombocytopenia Other congenital or acquired thrombophilia Stroke (< 1 month) Elective arthroplasty Hip, pelvis, or leg fracture Acute spinal cord injury (< 1 month) Prophylaxis Regimen Total Risk Factor Score Risk Level Prophylaxis Regimen 0-1 Low Early ambulation 2 Moderate Order ONE of the following: *Sequential Compression Device (SCD) *Heparin 5000 units SQ BID 3-4 Higher Order ONE of the following medications: *Heparin 5000 units SQ TID *Enoxaparin/Lovenox 40 mg SQ daily (WT < 150 kg, CrCl > 30 mL/min) *Enoxaparin/Lovenox 30 mg SQ daily (WT < 150 kg, CrCl > 10-29 mL/min) *Enoxaparin/Lovenox 30 mg SQ BID (WT < 150 kg, CrCl > 30 mL/min) AND/OR *Sequential Compression Device (SCD) 5 or more Highest Order ONE of the following medications: *Heparin 5000 units SQ TID (Preferred with Epidurals) *Enoxaparin/Lovenox 40 mg SQ daily (WT < 150 kg, CrCl > 30 mL/min) *Enoxaparin/Lovenox 30 mg SQ daily (WT < 150 kg, CrCl > 10-29 mL/min) *Enoxaparin/Lovenox 30 mg SQ BID (WT < 150 kg, CrCl > 30 mL/min) AND *Sequential Compression Device (SCD) Assessment and Plan Assessment and Plan Assessment/plan: 1. Left femoral neck fracture Continue traction Orthopedic surgery consulted, appreciate recommendations Morphine for pain Nothing by mouth after midnight 2. Hypertension Continue losartan, metoprolol 3. Hyperlipidemia Continue statin 4. History of TIA/PA Holding home aspirin in anticipation of operative intervention tomorrow FEN NPO NS at 84 cc/hr Electrolytes: Monitor and replete prn Holding pharmacologic anticoagulation in anticipation of operative intervention tomorrow Physician Certification 2 Midnight Certification Type: Admission for Inpatient Services Order for Inpatient Services The services are ordered in accordance with Medicare regulations or non- Medicare payer requirements, as applicable. In the case of services not specified as inpatient-only, they are appropriately provided as inpatient services in accordance with the 2-midnight benchmark. Estimated LOS (days): 2 2 days is the estimated time the patient will need to remain in the hospital, assuming treatment plan goals are met and no additional complications. Post-Hospital Plan: Not yet determined Char Rockwell MD Jun 28, 2017 21:21
[2017-06-29] VITALS: BP 185/76; PULSE 78; RESP 15; TEMP 98.9; O2SAT 100
--- NOTE | 2017-06-29 00:39 | EKG ---
Date Performed: 06/28/2017 Time Performed: 16:28:06 PTAGE: 81 years EKG: Sinus rhythm LEFT BUNDLE BRANCH BLOCK ABNORMAL ECG PREVIOUS TRACING : 01/20/2017 20.20 Since the prior tracing, there has been no significant sims DOCTOR: Isauro Brown Interpretating Date/Time 06/29/2017 00:38:24
[2017-06-29] MEDS: MORPHINE SULFATE 2 MG/ML INJ IV PUSH PRN ×2 (03:48→08:00)
[2017-06-29 04:00] VITALS: BP 185/84; PULSE 78; RESP 15; TEMP 98.3; O2SAT 98
[2017-06-29] MEDS: SODIUM CHLOR 0.9% 1000 ML INJ 1,000 ML IV SCH ×2 (04:30→08:01)
[2017-06-29] MEDS ORDERED: SODIUM CHLORID 0.9% 500 ML IV PRN (05:30)
[2017-06-29] MEDS ORDERED: CHLORHEXIDINE GLUCONATE 2 % 1 PACK (2 CLOTHS) TOPICAL PRN ×2 (05:30→05:45)
[2017-06-29] MEDS ORDERED: POVIDONE IODINE 5% (ANTISEPSIS KIT) 4 APPLICATIONS EACH NARE PRN ×2 (05:30→05:45)
[2017-06-29] MEDS ORDERED: LACTATED RINGER'S 1000 ML IV PRN ×2 (05:30→05:45)
[2017-06-29 06:11] LABS: BASOPHIL % 0.3 % (0.0-2.0); EOSINOPHIL # 0.1 TH/MM3 (0-0.4); EOSINOPHIL % 1.2 % (0.0-4.0); HEMATOCRIT 38.7 % (35.0-46.0); HEMOGLOBIN 13.1 GM/DL (11.6-15.3); LYMPH % 7.8 % (9.0-44.0); LYMPHOCYTE # 0.8 TH/MM3 (1.0-4.8); MEAN CELL VOLUME 90.1 FL (80.0-100.0); MEAN CORPUSCULAR HEMOGLOBIN 30.5 PG (27.0-34.0); MEAN CORPUSCULAR HGB CONC 33.8 % (32.0-36.0); MEAN PLATELET VOLUME 8.4 FL (7.0-11.0); MONO % 6.1 % (0.0-8.0); MONOCYTE # 0.7 TH/MM3 (0-0.9); NEUT % 84.6 % (16.0-70.0); PLATELET COUNT 243 TH/MM3 (150-450); RED CELL DISTRIBUTION WIDTH 13.4 % (11.6-17.2); WHITE BLOOD COUNT 10.7 TH/MM3 (4.0-11.0)
[2017-06-29 06:34] LABS: BICARBONATE 25.8 MEQ/L (21.0-32.0); CALCIUM 8.2 MG/DL (8.5-10.1); CREATININE 0.77 MG/DL (0.50-1.00)
[2017-06-29] MEDS: ISOSORBIDE MONONITRATE 30 MG TAB PO SCH (07:59)
[2017-06-29] MEDS: METOPROLOL TARTRATE 25 MG TAB PO SCH ×2 (07:59→22:54)
[2017-06-29] MEDS: LOSARTAN 50 MG TAB PO SCH (07:59)
[2017-06-29 08:00] VITALS: BP 191/76; PULSE 83; RESP 18; TEMP 97.9; O2SAT 97
[2017-06-29] MEDS: SODIUM CHLORIDE 0.9% FLUSH 10 ML FLUSH IV FLUSH SCH ×2 (08:01→22:54)
[2017-06-29] MEDS ORDERED: GENTAMICIN SULFATE 80 MG/2 ML VIAL ONE (10:45)
[2017-06-29] MEDS ORDERED: ceFAZolin INJ 1,000 MG VIAL IV ONE ×2 (11:45→12:00)
[2017-06-29] MEDS ORDERED: VANCOMYCIN HCL 1000 MG VIAL ONE (11:46)
[2017-06-29] MEDS ORDERED: ONDANSETRON HCL 4 MG/2 ML VIAL IV PUSH ONE (12:00)
[2017-06-29] MEDS ORDERED: NEOSTIGMINE 5 MG/5 ML SYRINGE IV PUSH ONE (12:00)
[2017-06-29] MEDS ORDERED: NORMOSOL R INJ 1,000 ML IV ONE (12:00)
[2017-06-29] MEDS ORDERED: DEXAMETHASONE SOD PHOS 4 MG/ML VIAL IV ONE (12:00)
[2017-06-29] MEDS ORDERED: LABETALOL HCL 100 MG/20 ML VIAL IV ONE (12:00)
[2017-06-29] MEDS ORDERED: GLYCOPYRROLATE 1 MG/5 ML SYRINGE IV PUSH ONE (12:00)
[2017-06-29] MEDS ORDERED: ROCURONIUM INJ 50 MG/5 ML SYRINGE IV PUSH ONE (12:00)
[2017-06-29] MEDS ORDERED: PHENYLEPH/NS 1000 MCG/10 ML SYR IV ONE (12:00)
[2017-06-29] MEDS ORDERED: PROPOFOL 200 MG/20 ML AMP IV ONE (12:00)
[2017-06-29] MEDS ORDERED: LIDOCAINE HCL 1% PF 5 ML SYRINGE OTHER ONE (12:00)
--- NOTE | 2017-06-29 12:34 | PD.CONS ---
HPI Service Orthopedic Surgeons Consult Requested By Luli Reason for Consult Fracture of the left hip Primary Care Physician Apple Thomas MD Admission Diagnosis Hip Fracture Diagnoses: Chief Complaint: Left hip pain and inability to ambulate History of Present Illness This patient is an 81-year-old female who stood up to walk when she noticed her right leg was asleep. She tripped and fell sustaining an injury to the left hip. She was unable to inability because of left hip pain. She is brought to [facility] and x-ray showed evidence of a displaced subcapital left femoral neck fracture. She was admitted to the medical service and I have been asked to see her in consultation regarding the same Review of Systems Constitutional: DENIES: Diaphoretic episodes, Fatigue, Fever, Weight gain, Weight loss, Chills, Dizziness, Change in appetite, Night Sweats Endocrine: DENIES: Abnorml menstrual pattern, Heat/cold intolerance, Polydipsia , Polyuria, Polyphagia Eyes: DENIES: Blurred vision, Diplopia, Eye inflammation, Eye pain, Vision loss , Photosensitivity, Double Vision Ears, nose, mouth, throat: DENIES: Tinnitus, Hearing loss, Vertigo, Nasal discharge, Oral lesions, Throat pain, Hoarseness, Ear Pain, Running Nose, Epistaxis, Sinus Pain, Toothache, Odynophagia Respiratory: DENIES: Apneas, Cough, Snoring, Wheezing, Hemoptysis, Sputum production, Shortness of breath Cardiovascular: DENIES: Chest pain, Palpitations, Syncope, Dyspnea on Exertion , PND, Lower Extremity Edema, Orthopnea, Claudication Gastrointestinal: DENIES: Abdominal pain, Black stools, Bloody stools, Constipation, Diarrhea, Nausea, Vomiting, Difficulty Swallowing, Anorexia Genitourinary: DENIES: Abnormal vaginal bleeding, Dysmenorrhea, Dyspareunia, Sexual dysfunction, Urinary frequency, Urinary incontinence, Urgency, Hematuria , Dysuria, Nocturia, Vaginal discharge Integumentary: DENIES: Abnormal pigmentation, Pruritus, Rash, Nail changes, Breast masses, Breast skin changes, Nipple discharge Hematologic/lymphatic: DENIES: Bruising, Lymphadenopathy Immunologic/allergic: DENIES: Eczema, Urticaria Neurologic: DENIES: Abnormal gait, Headache, Localized weakness, Paresthesias, Seizures, Speech Problems, Tremor, Poor Balance Psychiatric: DENIES: Anxiety, Confusion, Mood changes, Depression, Hallucinations, Agitation, Suicidal Ideation, Homicidal Ideation, Delusions Past Family Social History Past Medical History TIA [place] in 2014 Hypertension Hyperlipidemia Past Surgical History BTL Cardiac catheterization without stent placement Allergies: Coded Allergies: codeine (Verified Allergy, Severe, 06/28/17) NO REACTION GIVEN Sulfa (Sulfonamide Antibiotics) (Verified Allergy, Unknown, 06/28/17) lisinopril (Verified Adverse Reaction, Intermediate, Edema, 06/28/17) Active Ordered Medications Current Medications Medications (Trade) Dose Ordered Sig/Thomas Route Start Time Stop Time Status Last Admin (NS Flush) 2 ml UNSCH PRN IV FLUSH 06/28/17 19:15 (NS Flush) 2 ml BID IV FLUSH 06/28/17 21:00 06/29/17 08:01 (Narcan Inj) 0.4 mg UNSCH PRN IV PUSH 06/28/17 19:15 (Morphine Inj) 2 mg Q3H PRN IV PUSH 06/28/17 19:15 06/29/17 08:00 (Imdur) 30 mg DAILY PO 06/29/17 09:00 06/29/17 07:59 (Cozaar) 100 mg DAILY PO 06/29/17 09:00 06/29/17 07:59 (Lopressor) 25 mg BID PO 06/28/17 21:00 06/29/17 07:59 (Lipitor) 40 mg HS PO 06/29/17 21:00 Sodium Chloride 1,000 ml @ 84 mls/hr [id number] IV 06/28/17 21:30 06/29/17 04:30 Lactated Ringer's 1,000 ml @ 30 mls/hr Q24H PRN IV 06/29/17 05:30 07/02/17 05:29 Sodium Chloride 500 ml @ 30 mls/hr [id number] PRN IV 06/29/17 05:30 07/02/17 05:29 (Betadine 5% Antisepsis Kit) 1 applic [employer]ESSION[employer] PRN EACH NARE 06/29/17 05:30 07/02/17 05:29 (Chlorhexidine 2% Cloth) 3 pack [employer] PRN TOPICAL 06/29/17 05:30 07/02/17 05:29 Lactated Ringer's 1,000 ml @ 30 mls/hr Q24H PRN IV 06/29/17 05:45 07/02/17 05:44 (Betadine 5% Antisepsis Kit) 1 applic [employer]ESSIONAL PRN EACH NARE 06/29/17 05:45 07/02/17 05:44 (Chlorhexidine 2% Cloth) 3 pack [employer] PRN TOPICAL 06/29/17 05:45 07/02/17 05:44 Reported Meds & Active Scripts Active Reported Atorvastatin (Atorvastatin Calcium) 40 Mg Tab 40 Mg PO HS Isosorbide Mononitrate ER (Isosorbide Mononitrate) 30 Mg Erick 30 Mg PO DAILY Aspirin 81 (Aspirin) 81 Mg Tabdr 162 Mg PO DAILY Metoprolol Tartrate 25 Mg Tab 25 Mg PO BID Nitrostat SL (Nitroglycerin) 0.4 Mg Subl 0.4 Mg SL DIRECTED PRN 1 tablet under the tongue as needed for chest pain. Repeat every 5 minutes for a total of 3 DOSES or call 911 if NO relief. Losartan (Losartan Potassium) 100 Mg Tab 100 Mg PO DAILY Plavix (Clopidogrel Bisulfate) 75 Mg Tab 75 Mg PO DAILY Family History Father with CVA Social History Rare alcohol use. Denies tobacco, illicit drugs Physical Exam Vital Signs Vital Signs Date Time Temp Pulse Resp B/P (MAP) Pulse Ox O2 Delivery O2 Flow Rate FiO2 06/29/17 08:05 17 06/29/17 08:00 97.9 83 18 191/76 (114) 97 06/29/17 04:00 98.3 78 15 185/84 (117) 98 06/29/17 00:00 98.9 78 15 185/76 (112) 100 06/28/17 22:40 06/28/17 21:13 79 16 160/79 (106) 97 Nasal Cannula 2.00 06/28/17 20:03 91 16 235/96 (142) 94 Nasal Cannula 2.00 06/28/17 16:12 75 15 206/91 (129) 96 Room Air 06/28/17 15:53 95 Room Air 06/28/17 15:53 78 15 206/ (129) 98 Room Air 06/28/17 15:46 74 15 206/91 (129) 98 Physical Exam The patient is in bed with Tate traction on the left leg. HEENT: Normocephalic atraumatic pupils equal round reactive. NECK: Supple. No abnormal masses. Full range of motion. CHEST: Clear to auscultation with no rales or rhonchi's or wheezes. HEART: Regular rate and rhythm. No murmurs. ABDOMEN: Soft, nontender, no masses. Normal active bowel sounds. GENITOURINARY: Deferred MUSCULOSKELETAL: Left hip shows mild swelling. There is external rotation the left leg compared to the right. She complains of pain with any motion. No ecchymosis. No redness or warmth. Dorsalis pedis 2+. She wiggles her toes. Sensation is normal. Laboratory Laboratory Tests Test 06/28/17 16:00 06/28/17 18:15 06/29/17 05:10 White Blood Count 10.7 10.7 Red Blood Count 4.55 4.30 Hemoglobin 13.9 13.1 Hematocrit 41.4 38.7 Mean Corpuscular Volume 91.0 90.1 Mean Corpuscular Hemoglobin 30.6 30.5 Mean Corpuscular Hemoglobin Concent 33.6 33.8 Red Cell Distribution Width 13.8 13.4 Platelet Count 269 243 Mean Platelet Volume 7.9 8.4 Neutrophils (%) (Auto) 84.7 84.6 Lymphocytes (%) (Auto) 9.3 7.8 Monocytes (%) (Auto) 4.8 6.1 Eosinophils (%) (Auto) 0.5 1.2 Basophils (%) (Auto) 0.7 0.3 Neutrophils # (Auto) 9.1 9.0 Lymphocytes # (Auto) 1.0 0.8 Monocytes # (Auto) 0.5 0.7 Eosinophils # (Auto) 0.1 0.1 Basophils # (Auto) 0.1 0.0 CBC Comment DIFF FINAL DIFF FINAL Differential Comment Prothrombin Time 10.0 Prothromb Time International Ratio 1.0 Activated Partial Thromboplast Time 23.6 Blood Urea Nitrogen 26 22 Creatinine 1.06 0.77 Random Glucose 111 121 Total Protein 7.7 Albumin 3.8 Calcium Level 8.9 8.2 Alkaline Phosphatase 146 Aspartate Amino Transf (AST/SGOT) 38 Alanine Aminotransferase (ALT/SGPT) 40 Total Bilirubin 0.4 Sodium Level 140 138 Potassium Level 4.7 3.7 Chloride Level 107 107 Carbon Dioxide Level 27.2 25.8 Anion Gap 6 5 Estimat Glomerular Filtration Rate 50 72 Urine Color YELLOW Urine Turbidity CLEAR Urine pH 7.0 Urine Specific [place] 1.011 Urine Protein NEG Urine Glucose (UA) NEG Urine Ketones NEG Urine Occult Blood NEG Urine Nitrite NEG Urine Bilirubin NEG Urine Urobilinogen LESS THAN 2.0 Urine Leukocyte Esterase NEG Urine RBC 1 Urine WBC LESS THAN 1 Urine Squamous Epithelial Cells <1 Urine Mucus FEW Microscopic Urinalysis Comment CATH-CULT NOT IND Result Diagram: 06/29/1750906/29/17509 Imaging X-ray reviewed and review of the radiologist interpretation shows evidence of a displaced subcapital left femoral neck fracture Assessment & Plan Assessment and Plan Left subcapital femoral neck fracture, displaced. PLAN: Surgical treatment: Left hip bipolar replacement arthroplasty. Consent: There are risks with surgery including infection, bleeding, loss of motion, dislocation, need for further surgery, neurologic or vascular injury, failure bone, failure of hardware, loosening. She understands these issues and wishes to proceed forward with surgery as outlined above Ravinder Martinez MD Jun 29, 2017 12:34
--- NOTE | 2017-06-29 12:37 | PD.OP ---
cc: Ravinder Martinez MD Operative Report Date of Surgery: Jun 29, 2017 Preoperative Diagnosis: Left subcapital femoral neck fracture, displaced Postoperative Diagnosis: Same Procedure: Left hip bipolar replacement arthroplasty Anesthesia: Gen. Surgeon: Ravinder Martinez Sugar Grinder(s): KELLEY Simpson Operation and Findings: EBL: 200 cc INDICATION: Patient is a 81-year-old female with significant left hip pain after a fall yesterday. Investigative studies shows evidence of a displaced subcapital left femoral neck fracture. She presents for surgical treatment NOTE: Cordelia Simpson PA-C was present for the entire surgical procedure as my clerical dentist assistant. In my medical opinion her skill and care was necessary for the proper management of this patient. COMPONENTS: COMPANY: [employer] CUP: Bipolar, 45 mm STEM: Size [place], size 5, basic/high offset, cemented HEAD: 28 mm, + +8.5 neck length, 12/14 taper PROCEDURE: This patient was brought to the operating room and anesthetized in the supine position and positioned on the routine table in the clean air suite. The patient was then rolled to a left side up lateral position and held with a Biomet hip positioner. The left hip and leg was scrubbed with alcohol followed by Hibiclens followed by chloro prep and draped sterilely. A timeout was done and antibiotics were given within a routine time window. A 4 inch incision was made starting along the posterior one third of the greater trochanter. The iliotibial band was opened in line with the incision. The Charnley retractors were positioned. The posterior capsule and external rotators were taken down together in a sleeve. The fracture was exposed. The head was removed. The neck was cut at the right location. The acetabulum was inspected. All loose bone fragments were removed. Retractors were positioned allowing good visualization of the proximal femur. A box osteotome was utilized followed by progressive broaching for the stem. This was progressively broached until the final size stem.. A trial reduction showed adequate fit with the final bipolar head and neck length. Stability was excellent. Offset was satisfactory. Leg length was reestablished. At 90 of flexion it was stable to 70 of internal rotation. The hip could not be subluxed anteriorly. The canal was irrigated copiously. Hemostasis was controlled. The final stem was inserted. The final head and bipolar component was assembled and impacted. The hip was reduced and stability, offset and leg length was as previously noted. The posterior capsule and external rotators were repaired through bone with interrupted #2 Tycron sutures. The piriformis muscle was repaired with the same. The iliotibial band with interrupted #1 Vicryl sutures. Subcutaneous tissue was approximated with 2-0 Vicryl suture and skin with running intradermal 3-0 Vicryl followed by Steri-Strips and benzoin. A sterile dressing was applied.. The sponge count needle counts and instrument counts were all correct. The patient was awakened and taken to the recovery room in satisfactory condition FINDINGS: There was evidence of a completely displaced left femoral neck fracture. The small fracture extending down along the calcar. This necessitated that we placed the neck cut slightly lower than usual. We made up this with a +8.5 neck length. Ravinder Martinez MD Jun 29, 2017 12:37
[2017-06-29] MEDS ORDERED: HYDR-3288 PO (12:40)
[2017-06-29] MEDS ORDERED: XARE10TA PO (12:40)
[2017-06-29] MEDS ORDERED: MISCELLANEOUS NURSING INFORMATION XX PRN (12:45)
[2017-06-29] MEDS ORDERED: ACETAMINOPHEN/HYDROcodone 325 MG/7.5 MG TAB PO PRN (12:45)
[2017-06-29] MEDS ORDERED: ONDANSETRON HCL 4 MG/2 ML VIAL IVP PRN (12:45)
[2017-06-29] MEDS ORDERED: MISCELLANEOUS PHARMACY INFORMATION XX ONE (12:45)
[2017-06-29] MEDS ORDERED: Post-op Orders (for Pharmacy) XX ONE (12:45)
[2017-06-29] MEDS ORDERED: TEMAZEPAM 15 MG CAP PO PRN (12:45)
[2017-06-29] MEDS ORDERED: MORPHINE SULFATE 8 MG/ML INJ IM PRN (12:45)
[2017-06-29] MEDS ORDERED: ALUMINUM/MAGNESIUM/SIMETH 30 ML CUP PO PRN (12:45)
[2017-06-29] MEDS ORDERED: DO NOT ADM ANY ANTICOAGULANT DRUGS PRN (13:02)
[2017-06-29] MEDS ORDERED: *morphine SULFATE 10 MG/ML PERIprocedure ONLY ONE (13:40)
[2017-06-29] MEDS: LACTATED RINGER'S 1000 ML INJ 1,000 ML IV SCH (14:00)
--- NOTE | 2017-06-29 14:29 | RADRPT ---
EXAM DATE/TIME: 06/29/2017 13:34 [facility] COMPARISON: No previous studies available for comparison. INDICATIONS : Left total hip replacement. MEDICAL HISTORY : Hypertension. Cardiovascular disease Cerebrovascular disease SURGICAL HISTORY : Tubal ligation. ENCOUNTER: Subsequent ACUITY: 2 days PAIN SCORE: 10/10 LOCATION: Left proximal hip. FINDINGS: 2 views of left hip. Left hip hemiarthroplasty in place. Hardware intact. Alignment within normal askew its. CONCLUSION: Unremarkable postoperative appearance left hip arthroplasty. Wagner Chew MD on June 29, 2017 at 14:26 Board Certified Radiologist. This report was verified electronically.
[2017-06-29 16:00] VITALS: BP 95/50; PULSE 72; RESP 18; TEMP 96.1; O2SAT 94
--- NOTE | 2017-06-29 17:56 | HHI.PR ---
Subjective Remarks pain controlled. Denies cp, sob, cough Objective Vitals Vital Signs Date Time Temp Pulse Resp B/P (MAP) Pulse Ox O2 Delivery O2 Flow Rate FiO2 06/29/17 16:00 96.1 72 18 95/50 (65) 94 06/29/17 14:15 97.9 66 11 133/61 (85) 98 Nasal Cannula 2 06/29/17 14:00 64 11 161/71 (101) 99 06/29/17 13:45 66 14 164/57 (92) 97 06/29/17 13:30 65 15 162/71 (101) 98 06/29/17 13:15 69 17 154/72 (99) 96 Nasal Cannula 2 06/29/17 13:08 97.9 76 20 184/78 (113) 94 Nasal Cannula 2 06/29/17 08:05 17 06/29/17 08:00 97.9 83 18 191/76 (114) 97 06/29/17 04:00 98.3 78 15 185/84 (117) 98 06/29/17 00:00 98.9 78 15 185/76 (112) 100 06/28/17 22:40 06/28/17 21:13 79 16 160/79 (106) 97 Nasal Cannula 2.00 06/28/17 20:03 91 16 235/96 (142) 94 Nasal Cannula 2.00 I/O 06/28/17 06/28/17 06/28/17 06/29/17 06/29/17 06/29/17 07:00 15:00 23:00 07:00 15:00 23:00 Intake Total 500 ml 1250 ml Output Total 700 ml 1700 ml Balance -200 ml -450 ml Intake Oral 500 ml IV Total 1250 ml Output Urine Total 700 ml 1500 ml Estimated Blood Loss 200 ml Result Diagram: 06/29/17 0510 06/29/17 0510 Imaging Last Impressions Hip X-Ray 06/29/17 0000 Signed Impressions: Service Date/Time: June 13:34 - CONCLUSION: Unremarkable postoperative appearance left hip arthroplasty. Wagner Chew MD Hip and Pelvis X-Ray 06/28/17 1557 Signed Impressions: Service Date/Time: Wednesday, June 28, 2017 16:44 - CONCLUSION: Basi cervical fracture left femoral neck. Femoral head aligned with the acetabulum.. Yrn G. Miles, MD FACR Chest X-Ray 06/28/17 1557 Signed Impressions: Service Date/Time: Wednesday, June 28, 2017 16:47 - CONCLUSION: Compensated cardiomegaly otherwise negative . There is no pneumothorax or rib fracture. Yrn Stevenson MD FACR Head CT 06/28/17 0000 Signed Impressions: Service Date/Time: Wednesday, June 28, 2017 16:27 - CONCLUSION: 1. Stable chronic changes with cortical and central atrophy as well as periventricular small vessel ischemic myelination. 2. Nothing acute. Ashok Vazquez MD Ankle X-Ray 06/28/17 0000 Signed Impressions: Service Date/Time: Wednesday, June 28, 2017 16:44 - CONCLUSION: Negative for fracture or dislocation. Follow up in 7-10 days is suggested if symptoms persist. Yrn Stevenson MD FACR Objective Remarks GENERAL: female lying in bed SKIN: No rashes, ecchymoses or lesions. Cool and dry. HEAD: Atraumatic. Normocephalic. No temporal or scalp tenderness. EYES: Pupils equal round and reactive. Extraocular motions intact. No scleral icterus. No injection or drainage. ENT: Nose without bleeding, purulent drainage or septal hematoma. Throat without erythema, tonsillar hypertrophy or exudate. Uvula midline. Airway patent. NECK: Trachea midline. No JVD or lymphadenopathy. Supple, nontender, no meningeal signs. CARDIOVASCULAR: Regular rate and rhythm without murmurs, gallops, or rubs. RESPIRATORY: Clear to auscultation. Breath sounds equal bilaterally. No wheezes , rales, or rhonchi. GASTROINTESTINAL: Abdomen soft, non-tender, nondistended. No hepato-splenomegaly , or palpable masses. No guarding. MUSCULOSKELETAL: Hip dressing intact, mild-moderate drainage, no erythema, some swelling +motor at, +sens, +nvi neg homans distal NEUROLOGICAL: Awake and alert. Cranial nerves II through XII intact. Motor and sensory grossly within normal limits. Normal speech A/P Assessment and Plan 1. Left femoral neck fracture Orthopedic surgery consulted, appreciate recommendations Morphine for pain 06/29 Left hip bipolar replacement arthroplasty. Pain control and management as per orthopedic surgery. 2. Hypertension Continue losartan, metoprolol 3. Hyperlipidemia Continue statin 4. History of TIA/TX Holding home aspirin in anticipation of operative intervention tomorrow FEN NPO NS at 84 cc/hr Electrolytes: Monitor and replete prn DVT proph: Continue SCD's - chemoprophylaxis as per ortho. Cristian Melara MD Jun 29, 2017 17:56
[2017-06-29 19:37] VITALS: BP 126/59; PULSE 75; RESP 15; TEMP 96.9; O2SAT 96
[2017-06-29 21:45] LABS: HEMOGLOBIN A1C 5.8 % (4.3-6.0)
[2017-06-29] MEDS: ATORVASTATIN 40 MG TAB PO SCH (22:53)
[2017-06-29] MEDS: SENNOSIDES 8.6 MG TAB PO SCH (22:54)
[2017-06-29] MEDS: MAGNESIUM HYDROXIDE SUSP 30 ML CUP PO SCH (22:54)
[2017-06-30] VITALS (8 sets, daily range): BP systolic 121–165; BP diastolic 63–81; PULSE 69–84; RESP 15–17; TEMP 96–97.9; O2SAT 93–98
[2017-06-30] MEDS: SODIUM CHLOR 0.9% 1000 ML INJ 1,000 ML IV SCH ×2 (01:13→09:15)
[2017-06-30] MEDS: LACTATED RINGER'S 1000 ML INJ 1,000 ML IV SCH (01:13)
[2017-06-30 04:31] LABS: HEMATOCRIT 31.2 % (35.0-46.0); HEMOGLOBIN 10.6 GM/DL (11.6-15.3)
--- NOTE | 2017-06-30 07:55 | PD.ORT.PN ---
Subjective Subjective Remarks Doing well. Pain moderately controlled. No new leg pain. No CP or SOB. Questions about surgery. Objective Vitals Vital Signs Date Time Temp Pulse Resp B/P (MAP) Pulse Ox O2 Delivery O2 Flow Rate FiO2 06/30/17 04:45 96.7 79 15 155/68 (97) 94 06/30/17 03:10 96.9 70 15 138/63 (88) 93 06/29/17 19:41 Nasal Cannula 2.00 06/29/17 19:37 96.9 75 15 126/59 (81) 96 06/29/17 16:00 96.1 72 18 95/50 (65) 94 06/29/17 14:15 97.9 66 11 133/61 (85) 98 Nasal Cannula 2 06/29/17 14:00 64 11 161/71 (101) 99 06/29/17 13:45 66 14 164/57 (92) 97 06/29/17 13:30 65 15 162/71 (101) 98 06/29/17 13:15 69 17 154/72 (99) 96 Nasal Cannula 2 06/29/17 13:08 97.9 76 20 184/78 (113) 94 Nasal Cannula 2 06/29/17 08:05 17 06/29/17 08:00 97.9 83 18 191/76 (114) 97 I/O 06/29/17 06/29/17 06/29/17 06/30/17 06/30/17 06/30/17 07:00 15:00 23:00 07:00 15:00 23:00 Intake Total 500 ml 1250 ml Output Total 700 ml 1700 ml Balance -200 ml -450 ml Intake Oral 500 ml IV Total 1250 ml Output Urine Total 700 ml 1500 ml Estimated Blood Loss 200 ml Result Diagram: 06/30/17 0335 06/29/17 0510 Objective Remarks Sitting up in bed NAD VSS LLE Hip dressing intact, mild-moderate drainage, no erythema, some swelling +motor at, +sens, +nvi neg homans distal Assessment & Plan Ortho Post Op Day #: 1 Problem List: Assessment and Plan Left subcapital femoral neck fracture, displaced. pod#1 s/p Left Hip hemiarthroplasty Ortho stable. Pain controlled on po pain meds. Consider dressing change tomorrow if drainage increases. If stable, no dressing changes. Xarelto 10mg PT - WBAT LLE. Posterior hip precautions. D/C planning, likely rehab. F/U in 2 weeks as scheduled. Mallory Elias Jun 30, 2017 07:55
[2017-06-30] MEDS: SODIUM CHLORIDE 0.9% FLUSH 10 ML FLUSH IV FLUSH SCH ×2 (09:00→22:34)
[2017-06-30] MEDS: METOPROLOL TARTRATE 25 MG TAB PO SCH ×2 (10:28→22:33)
[2017-06-30] MEDS: MAGNESIUM HYDROXIDE SUSP 30 ML CUP PO SCH ×2 (10:28→22:33)
[2017-06-30] MEDS: ISOSORBIDE MONONITRATE 30 MG TAB PO SCH (10:28)
[2017-06-30] MEDS: LOSARTAN 50 MG TAB PO SCH (10:28)
[2017-06-30] MEDS: ACETAMINOPHEN/HYDROcodone 325 MG/7.5 MG TAB PO PRN (12:12)
[2017-06-30] MEDS: RIVAROXABAN 10 MG TAB PO SCH (12:12)
--- NOTE | 2017-06-30 14:44 | HHI.PR ---
Subjective Remarks Pain controlled denies cp/sob. afebrile. Objective Vitals Vital Signs Date Time Temp Pulse Resp B/P (MAP) Pulse Ox O2 Delivery O2 Flow Rate FiO2 06/30/17 13:11 96 2.00 06/30/17 04:45 96.7 79 15 155/68 (97) 94 06/30/17 03:10 96.9 70 15 138/63 (88) 93 06/29/17 19:41 Nasal Cannula 2.00 06/29/17 19:37 96.9 75 15 126/59 (81) 96 06/29/17 16:00 96.1 72 18 95/50 (65) 94 I/O 06/29/17 06/29/17 06/29/17 06/30/17 06/30/17 06/30/17 07:00 15:00 23:00 07:00 15:00 23:00 Intake Total 500 ml 1250 ml Output Total 700 ml 1700 ml Balance -200 ml -450 ml Intake Oral 500 ml IV Total 1250 ml Output Urine Total 700 ml 1500 ml Estimated Blood Loss 200 ml Result Diagram: 06/30/17 0335 06/29/17 0510 Imaging Last Impressions Hip X-Ray 06/29/17 0000 Signed Impressions: Service Date/Time: June 13:34 - CONCLUSION: Unremarkable postoperative appearance left hip arthroplasty. Wagner Chew MD Hip and Pelvis X-Ray 06/28/17 1557 Signed Impressions: Service Date/Time: Wednesday, June 28, 2017 16:44 - CONCLUSION: Basi cervical fracture left femoral neck. Femoral head aligned with the acetabulum.. Yrn Stevenson MD FACR Chest X-Ray 06/28/17 1557 Signed Impressions: Service Date/Time: Wednesday, June 28, 2017 16:47 - CONCLUSION: Compensated cardiomegaly otherwise negative . There is no pneumothorax or rib fracture. Yrn Stevenson MD FACR Head CT 06/28/17 0000 Signed Impressions: Service Date/Time: Wednesday, June 28, 2017 16:27 - CONCLUSION: 1. Stable chronic changes with cortical and central atrophy as well as periventricular small vessel ischemic myelination. 2. Nothing acute. Ashok Vazquez MD Ankle X-Ray 06/28/17 0000 Signed Impressions: Service Date/Time: Wednesday, June 28, 2017 16:44 - CONCLUSION: Negative for fracture or dislocation. Follow up in 7-10 days is suggested if symptoms persist. Yrn Stevenson MD FACR Objective Remarks GENERAL: female lying in bed SKIN: No rashes, ecchymoses or lesions. Cool and dry. HEAD: Atraumatic. Normocephalic. No temporal or scalp tenderness. EYES: Pupils equal round and reactive. Extraocular motions intact. No scleral icterus. No injection or drainage. ENT: Nose without bleeding, purulent drainage or septal hematoma. Throat without erythema, tonsillar hypertrophy or exudate. Uvula midline. Airway patent. NECK: Trachea midline. No JVD or lymphadenopathy. Supple, nontender, no meningeal signs. CARDIOVASCULAR: Regular rate and rhythm without murmurs, gallops, or rubs. RESPIRATORY: Clear to auscultation. Breath sounds equal bilaterally. No wheezes , rales, or rhonchi. GASTROINTESTINAL: Abdomen soft, non-tender, nondistended. No hepato-splenomegaly , or palpable masses. No guarding. MUSCULOSKELETAL: Hip dressing intact, mild-moderate drainage, no erythema, some swelling +motor at, +sens, +nvi neg homans distal NEUROLOGICAL: Awake and alert. Cranial nerves II through XII intact. Motor and sensory grossly within normal limits. Normal speech Medications and IVs Current Medications Medications (Trade) Dose Ordered Sig/Thomas Route Start Time Stop Time Status Last Admin (NS Flush) 2 ml UNSCH PRN IV FLUSH 06/28/17 19:15 (NS Flush) 2 ml BID IV FLUSH 06/28/17 21:00 06/29/17 22:54 (Narcan Inj) 0.4 mg UNSCH PRN IV PUSH 06/28/17 19:15 (Morphine Inj) 2 mg Q3H PRN IV PUSH 06/28/17 19:15 06/29/17 08:00 (Imdur) 30 mg DAILY PO 06/29/17 09:00 06/30/17 10:28 (Cozaar) 100 mg DAILY PO 06/29/17 09:00 06/30/17 10:28 (Lopressor) 25 mg BID PO 06/28/17 21:00 06/30/17 10:28 (Lipitor) 40 mg HS PO 06/29/17 21:00 06/29/17 22:53 Lactated Ringer's 1,000 ml @ 30 mls/hr Q24H PRN IV 06/29/17 05:30 07/02/17 05:29 Sodium Chloride 500 ml @ 30 mls/hr [id number] PRN IV 06/29/17 05:30 07/02/17 05:29 (Betadine 5% Antisepsis Kit) 1 applic [employer] PRN EACH NARE 06/29/17 05:30 07/02/17 05:29 (Chlorhexidine 2% Cloth) 3 pack [employer] PRN TOPICAL 06/29/17 05:30 07/02/17 05:29 Lactated Ringer's 1,000 ml @ 30 mls/hr Q24H PRN IV 06/29/17 05:45 07/02/17 05:44 (Betadine 5% Antisepsis Kit) 1 applic [employer] PRN EACH NARE 06/29/17 05:45 07/02/17 05:44 (Chlorhexidine 2% Cloth) 3 pack [employer] PRN TOPICAL 06/29/17 05:45 07/02/17 05:44 (Xarelto) 10 mg Q24H PO 06/30/17 12:00 06/30/17 12:12 Miscellaneous Information UNSCH PRN XX 06/29/17 12:45 (Morphine Inj) 5 mg Q3H PRN IM 06/29/17 12:45 ([place] 7.5-325 Mg) 1 tab Q4H PRN PO 06/29/17 12:45 06/30/17 12:12 ([place] 7.5-325 Mg) 2 tab Q4H PRN PO 06/29/17 12:45 (Zofran Inj) 4 mg Q6H PRN IVP 06/29/17 12:45 (Mag-Al Plus Susp Liq) 30 ml Q6H PRN PO 06/29/17 12:45 (Restoril) 15 mg HS PRN PO 06/29/17 12:45 (Milk Of Magnesia Liq) 30 ml BID PO 06/29/17 21:00 06/30/17 10:28 (Senokot) 17.2 mg HS PO 06/29/17 21:00 06/29/17 22:54 A/P Assessment and Plan 1. Left femoral neck fracture Orthopedic surgery consulted, appreciate recommendations Morphine for pain 06/29 Left hip bipolar replacement arthroplasty. Pain control and management as per orthopedic surgery. 2. Hypertension Continue losartan, metoprolol - stable. 3. Hyperlipidemia Continue statin 4. History of TIA/DE home asa held. On Xarelto 10 mg as per orthopedic surgery. Electrolytes: Monitor and replete prn DVT proph: Continue SCD's - chemoprophylaxis as per ortho. Discharge Planning Possible DC in am. Pending Orthopedic surgery clearance. Cristian Melara MD Jun 30, 2017 14:44
[2017-06-30] MEDS: ATORVASTATIN 40 MG TAB PO SCH (22:33)
[2017-06-30] MEDS: SENNOSIDES 8.6 MG TAB PO SCH (22:33)
[2017-07-01] VITALS: BP 147/65; PULSE 98; RESP 16; TEMP 97.6; O2SAT 91
[2017-07-01] MEDS: ACETAMINOPHEN/HYDROcodone 325 MG/7.5 MG TAB PO PRN ×2 (03:31→12:35)
--- NOTE | 2017-07-01 06:30 | PD.ORT.PN ---
Subjective Subjective Remarks POd 3 s/p left hip hemiarthroplasty doing well. reports pain but tolerable. states working with therapy and ambulating relatively well Objective Vitals Vital Signs Date Time Temp Pulse Resp B/P (MAP) Pulse Ox O2 Delivery O2 Flow Rate FiO2 07/01/17 00:00 97.6 98 16 147/65 (92) 91 06/30/17 20:00 97.5 84 17 157/68 (97) 94 06/30/17 19:11 Room Air 06/30/17 16:25 96 Nasal Cannula 2.00 06/30/17 16:00 96.0 69 16 139/68 (91) 98 06/30/17 13:11 96 2.00 06/30/17 12:00 97.9 73 16 121/64 (83) 95 06/30/17 08:00 97.5 73 16 165/81 (109) 96 I/O 06/30/17 06/30/17 06/30/17 07/01/17 07/01/17 07/01/17 07:00 15:00 23:00 07:00 15:00 23:00 Intake Total 100 ml 1320 ml 1360 ml Output Total 1950 ml Balance 100 ml -630 ml 1360 ml Intake Oral 1320 ml 360 ml IV Total 100 ml 1000 ml Output Urine Total 1950 ml # Voids 1 1 Result Diagram: 06/30/17 0335 06/29/17 0510 Objective Remarks Sitting up in bed NAD VSS LLE Hip dressing intact, mild-moderate drainage, no erythema, some swelling +motor at, +sens, +nvi neg homans distal Assessment & Plan Assessment and Plan 1) Left subcapital femoral neck fracture, displaced. pod#3 s/p Left Hip hemiarthroplasty Ortho stable. Pain controlled on po pain meds. Consider dressing change tomorrow if drainage increases. If stable, no dressing changes. Xarelto 10mg PT - WBAT LLE. Posterior hip precautions. D/C planning, rehab today. F/U in 2 weeks as scheduled. Abe Stone/First Nirmal JACOB Jul 01, 2017 06:30
[2017-07-01 08:00] VITALS: BP 146/61; PULSE 88; RESP 18; TEMP 98.2; O2SAT 93
[2017-07-01] MEDS: MAGNESIUM HYDROXIDE SUSP 30 ML CUP PO SCH (09:13)
[2017-07-01] MEDS: METOPROLOL TARTRATE 25 MG TAB PO SCH (09:14)
[2017-07-01] MEDS: ISOSORBIDE MONONITRATE 30 MG TAB PO SCH (09:14)
[2017-07-01] MEDS: LOSARTAN 50 MG TAB PO SCH (09:14)
[2017-07-01] MEDS: SODIUM CHLORIDE 0.9% FLUSH 10 ML FLUSH IV FLUSH SCH (09:17)
[2017-07-01 11:58] VITALS: BP 147/66; PULSE 82; RESP 18; TEMP 98.1; O2SAT 94
[2017-07-01] MEDS: RIVAROXABAN 10 MG TAB PO SCH (12:35)
[2017-07-01 13:30] VITALS: O2SAT 94
[2017-07-01 13:35] VITALS: RESP 18
--- NOTE | 2017-07-01 14:02 | HHI.DCPOC ---
Discharge Care Plan Diagnosis: (1) Hyperlipidemia (2) Left displaced femoral neck fracture (3) HTN (hypertension) (4) History of recurrent TIAs (5) Hyperlipidemia Goals to Promote Your Health * To prevent worsening of your condition and complications * To maintain your health at the optimal level Directions to Meet Your Goals Take your medications as prescribed Follow your dietary instruction Follow activity as directed Keep your appointments as scheduled Take your immunizations and boosters as scheduled If your symptoms worsen call your PCP, if no PCP go to Urgent Care Center or Emergency Room Smoking is Dangerous to Your Health. Avoid second hand smoke Call the 24-hour hour crisis hotline for domestic abuse at Cristian Melara MD Jul 01, 2017 14:02
[2017-07-01] MEDS ORDERED: XARE10TA PO (14:07)
--- NOTE | 2017-07-01 14:08 | HHI.DCPOC ---
Discharge Care Plan Diagnosis: (1) Left displaced femoral neck fracture (2) History of recurrent TIAs (3) HTN (hypertension) (4) Hyperlipidemia (5) Hyperlipidemia (6) H/o TIA on Plavix Goals to Promote Your Health * To prevent worsening of your condition and complications * To maintain your health at the optimal level Directions to Meet Your Goals Take your medications as prescribed Follow your dietary instruction Follow activity as directed Keep your appointments as scheduled Take your immunizations and boosters as scheduled If your symptoms worsen call your PCP, if no PCP go to Urgent Care Center or Emergency Room Smoking is Dangerous to Your Health. Avoid second hand smoke Call the 24-hour hour crisis hotline for domestic abuse at Cristian Melara MD Jul 01, 2017 14:08
--- NOTE | 2017-07-01 14:13 | HHI.DS ---
Discharge Summary Admission Date Jun 28, 2017 at 19:03 Discharge Date: Jul 01, 2017 Admitting Diagnosis Hip Fracture (1) Left displaced femoral neck fracture ICD Code: S72.002A - Fracture of unspecified part of neck of left femur, initial encounter for closed fracture Diagnosis: Principal Status: Acute (2) Hyperlipidemia ICD Code: E78.5 - Hyperlipidemia, unspecified Diagnosis: Secondary Status: Chronic (3) H/o TIA on Plavix Diagnosis: Secondary Status: Chronic (4) History of recurrent TIAs ICD Code: Z86.73 - Personal history of transient ischemic attack (TIA), and cerebral infarction without residual deficits Diagnosis: Secondary Status: Chronic (5) HTN (hypertension) ICD Code: I10 - Hypertension Diagnosis: Secondary Status: Chronic (6) Hyperlipidemia ICD Code: E78.5 - Hyperlipidemia, unspecified Diagnosis: Secondary Status: Chronic Procedures Left hip bipolar replacement arthroplasty Brief History - From Admission 81-year-old female with a past medical history significant for TIA, CAD, hypertension and hyperlipidemia presents to the emergency department after suffering a fall. The patient reports she got off her couch to answer the door and her right foot was asleep. She states she tripped over a nearby rocking chair and landed on her left side. She denies any loss of consciousness or syncope. She denies any head trauma. She reports pain in her left hip. CBC/BMP: 06/30/17 0335 06/29/17 0510 Significant Findings Laboratory Tests Test 06/28/17 16:00 06/28/17 18:15 06/29/17 05:10 06/30/17 03:35 Neutrophils (%) (Auto) 84.7 % (16.0-70.0) 84.6 % (16.0-70.0) Neutrophils # (Auto) 9.1 TH/MM3 (1.8-7.7) 9.0 TH/MM3 (1.8-7.7) Activated Partial Thromboplast Time 23.6 SEC (24.3-30.1) Blood Urea Nitrogen 26 MG/DL (7-18) 22 MG/DL (7-18) Creatinine 1.06 MG/DL (0.50-1.00) Random Glucose 111 MG/DL (74-106) 121 MG/DL (74-106) Alkaline Phosphatase 146 U/L (45-117) Aspartate Amino Transf (AST/SGOT) 38 U/L (15-37) Estimat Glomerular Filtration Rate 50 ML/MIN (>89) 72 ML/MIN (>89) Urine Mucus FEW /lpf (OCC) Lymphocytes (%) (Auto) 7.8 % (9.0-44.0) Lymphocytes # (Auto) 0.8 TH/MM3 (1.0-4.8) Calcium Level 8.2 MG/DL (8.5-10.1) Hemoglobin 10.6 GM/DL (11.6-15.3) Hematocrit 31.2 % (35.0-46.0) Imaging Last Impressions Hip X-Ray 06/29/17 0000 Signed Impressions: Service Date/Time: June 13:34 - CONCLUSION: Unremarkable postoperative appearance left hip arthroplasty. Wagner Chew MD Hip and Pelvis X-Ray 06/28/17 155 Signed Impressions: Service Date/Time: Wednesday, June 28, 2017 16:44 - CONCLUSION: Basi cervical fracture left femoral neck. Femoral head aligned with the acetabulum.. Yrn Stevenson MD FACR Chest X-Ray 06/28/17 1557 Signed Impressions: Service Date/Time: Wednesday, June 28, 2017 16:47 - CONCLUSION: Compensated cardiomegaly otherwise negative . There is no pneumothorax or rib fracture. Yrn Stevenson MD FACR Head CT 06/28/17 0000 Signed Impressions: Service Date/Time: Wednesday, June 28, 2017 16:27 - CONCLUSION: 1. Stable chronic changes with cortical and central atrophy as well as periventricular small vessel ischemic myelination. 2. Nothing acute. Ashok Vazquez MD Ankle X-Ray 06/28/17 0000 Signed Impressions: Service Date/Time: Wednesday, June 28, 2017 16:44 - CONCLUSION: Negative for fracture or dislocation. Follow up in 7-10 days is suggested if symptoms persist. Yrn Stevenson MD FACR PE at Discharge GENERAL: female lying in bed SKIN: No rashes, ecchymoses or lesions. Cool and dry. HEAD: Atraumatic. Normocephalic. No temporal or scalp tenderness. EYES: Pupils equal round and reactive. Extraocular motions intact. No scleral icterus. No injection or drainage. ENT: Nose without bleeding, purulent drainage or septal hematoma. Throat without erythema, tonsillar hypertrophy or exudate. Uvula midline. Airway patent. NECK: Trachea midline. No JVD or lymphadenopathy. Supple, nontender, no meningeal signs. CARDIOVASCULAR: Regular rate and rhythm without murmurs, gallops, or rubs. RESPIRATORY: Clear to auscultation. Breath sounds equal bilaterally. No wheezes , rales, or rhonchi. GASTROINTESTINAL: Abdomen soft, non-tender, nondistended. No hepato-splenomegaly , or palpable masses. No guarding. MUSCULOSKELETAL: Hip dressing intact, mild-moderate drainage, no erythema, some swelling +motor at, +sens, +nvi neg homans distal NEUROLOGICAL: Awake and alert. Cranial nerves II through XII intact. Motor and sensory grossly within normal limits. Normal speech Pt update on day of discharge The patient states that the pain is controlled. Patient denies chest pain or shortness of breath. Patient has been cleared by orthopedic surgery to be discharged to SNF. Hospital Course The patient was admitted to orthopedic floor, placed on morphine as needed for pain, orthopedic surgery consulted. The patient status post left hip bipolar replacement arthroplasty. This problem was managed by orthopedic surgery during hospital stay. The patient also had history of hypertension, home medications which include losartan and metoprolol were continued in hospital stay. The patient's blood pressure remained stable. Patient had also history of hyperlipidemia for which a statins were continued. The patient was found to have some elevated blood sugars which likely is secondary to acute stress due to acute and posterior surgery. Hemoglobin A1c was ordered and it was 5.8. Aspirin and Plavix were held prior to surgical procedure. Upon surgery orthopedic surgery recommended Xarelto 10 mg daily. Will hold aspirin and Plavix on discharge since patient will be on Xarelto due to increased risks of bleeding if all of these medications or even together. Once the patient gets off Xarelto 10 will likely need to go back into aspirin and Plavix. Pt Condition on Discharge: Stable Discharge Disposition: Discharge to SNF Discharge Time: > 30 minutes Discharge Instructions DIET: Follow Instructions for: As Tolerated, No Restrictions Activities you can perform: See Additionl Instruction Other Activity Instructions: PT - WBAT LLE. Posterior hip precautions. Follow up Referrals: Appointment for Follow Up - 2 Weeks with Ravinder Martinez MD New Medications: Hydrocodone-Acetaminophen ([place]) 7.5-325 mg Tab 1 TAB PO Q4H PRN for PAIN, #50 TAB 0 Refills Rivaroxaban (Xarelto) 10 Mg Tab 10 MG PO DAILY for Blood Clot Prevention, #25 TAB 0 Refills Continued Medications: Atorvastatin (Atorvastatin) 40 Mg Tab 40 MG PO HS for Cholesterol Management, #30 TAB 0 Refills Isosorbide Mononitrate ER (Isosorbide Mononitrate ER) 30 Mg Erick 30 MG PO DAILY for Prevent Chest Pain, #30 TAB 0 Refills Losartan (Losartan) 100 Mg Tab 100 MG PO DAILY for Blood Pressure Management, #30 TAB 0 Refills Metoprolol Tartrate (Metoprolol Tartrate) 25 Mg Tab 25 MG PO BID, #60 TAB 0 Refills Nitroglycerin SL (Nitrostat SL) 0.4 Mg Subl 0.4 MG SL DIRECTED PRN for CHEST PAIN, #100 TAB.SL 0 Refills 1 tablet under the tongue as needed for chest pain. Repeat every 5 minutes for a total of 3 DOSES or call 911 if NO relief. Discontinued Medications: Aspirin DR (Aspirin 81) 81 Mg Tabdr 162 MG PO DAILY, TAB 0 Refills Clopidogrel (Plavix) 75 Mg Tab 75 MG PO DAILY for Blood Clot Prevention, #30 TAB 0 Refills Cristian Melara MD Jul 01, 2017 14:13
== END 2017-07-01 16:38 | DRG 470 ==
LOC: NEPE 15:36 → NEDA 19:03 → N06B 22:37
PROVIDERS: ADMIT Hospitalist; ATTEND Hospitalist
PROC: 0SRS0J9 Replacement of Left Hip Joint, Femoral Surface with Synthetic Substitute, Cemented, Open Approach (ICD-10-PCS; principal; 2017-06-29 11:13)
DX: S72.012A Unspecified intracapsular fracture of left femur, initial encounter for closed fracture (principal); E11.65 Type 2 diabetes mellitus with hyperglycemia; I44.7 Left bundle-branch block, unspecified; I10 Essential (primary) hypertension; E78.5 Hyperlipidemia, unspecified; I25.10 Atherosclerotic heart disease of native coronary artery without angina pectoris; I25.2 Old myocardial infarction; W01.0XXA Fall on same level from slipping, tripping and stumbling without subsequent striking against object, initial encounter; Z86.73 Personal history of transient ischemic attack (TIA), and cerebral infarction without residual deficits; Z88.2 Allergy status to sulfonamides; Z88.5 Allergy status to narcotic agent
CPT/HCPCS: 51702; 70450; 71045; 73502; 73610; 80048; 80053; 81001; 83036; 85014; 85018; 85025; 85610; 85730; 86850; 86900; 86901; 93005; 94150; 96374; 96376; C1776; J0690; J1100; J1580; J2270; J2370; J2405; J2710; J3370; J7030; J7120